=== PATIENT | male | born 1950 | race Caucasian/White ===

== ENCOUNTER 2020-12-04 20:59 | Inpatient (IN) | payer BC, OTHER ==
--- OUTSIDE RECORDS SUMMARY | 2020-12-04 21:02 | XMS REPORT | Continuity of Care Document ---
:1950 Author Organization [facility] t Address [address] [place] [address] Care Team Providers Name Role Phone Jordin Alvarenga Attending Clinician Problems Condition Condition Condition Status Onset Resolution Last Treating Co mments Source Name Details Category Date Date Treatment Clinician Date Hypothyroi Hypothyroi Problem Active [facility] ill[facility] dism dism 11-18 Family 00:00: Practic 00 e Type 2 Type 2 Problem Active [facility] diabetes Diabetes 11-18 Family mellitus Mellitus 00:00: Practi c without without 00 e complicati Complicati on on Hyperlipid Hyperlipid Problem Active [facility] ill[facility] emia emia 11-18 Family 00:00: Practic 00 e Seasonal Seasonal Problem Active [facility] allergic Allergic 11-18 Family rhinitis Rhinitis 00:00: Practi c 00 e Benign Benign Problem Active [facility] prostatic Prostatic 11-18 Fami ly hyperplasi Hyperplasi 00:00: Pr actic a a 00 e 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 21:23:41 l (disorder) 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) Active Problem 11/13/2019 [facility] Cough Problem Active 2019-11-13 Memor ia (finding) 21:23:41 l Cough [place] (finding) Active Problem 11/13/2019 [facility] Diabetes Problem Active 2019-11-13 Mem oria mellitus 21:23:41 l (disorder) Diabetes He rmann mellitus (disorder) Active Problem 11/13/2019 [facility] Hypertensi Problem Active 2019-11-13 M emoria ve 21:23:41 l disorder, [place] systemic Hypertensi arterial ve (disorder) disorder, systemic arterial (disorder) Active Problem 11/13/2019 [facility] Memory Problem Active 2019-11-13 Memor ia impairment 21:23:41 l (finding) Memory Tsering nn impairment (finding) Active Problem 11/13/2019 [facility] 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 Mild [place] (disorder) cognitive disorder (disorder) Active Problem 11/13/2019 [facility] Simple Problem Active 2019-11-13 Memor ia obesity 21:23:41 l (disorder) Simple Herm aleksander obesity (disorder) Active Problem 11/13/2019 [facility] Allergies, Adverse Reactions, Alerts Allergy Allergy Status Severity Reaction(s) Onset Inactive Treating Comm ents Source Name Type Date Date Clinician PENICILL Allergy Active Anaphylaxis Vi llage INS to Family substanc Practic e e penicill penicill Active Memori a in in dee [place] Social History Social Habit Start Date Stop Date Quantity Comments Source Social History 2019-05-13 2019-05-13 [facility] Sami deleonaleksander 16:46:56 16:46:56 Smoking Status Start Date Stop Date Source Never Smoker [facility] Medications Ordered Filled Start Stop Current Ordering Indication Dosage Frequency Signature Comments Components Source Medication Medication Date Date Medication? Clinician (SIG) Name Name donepezil Yes 10 mg = 1 Mem oria 10 mg oral 1-09 tab, PO, l tablet 16:43: Bedtime, # Tsering nn 00 30 tab, 6 Refill(s), Pharmacy: [id number] Donepezil 2018-05 Yes 5 mg = 1 Abbe jessica hydrochlori 0-18 tab, PO, l de 5 MG 14:11: Bedtime, # Herm aleksander Oral Tablet 00 30 tab, 3 [Aricept] Refill(s), Pharmacy: [id number] Donepezil 2018-05 No 5 mg = 1 Abbe jessica hydrochlori 0-18 tab, PO, l de 5 MG 14:10: Bedtime, # Herm aleksander Oral Tablet 00 30 tab, 0 [Aricept] Refill(s) dapaglifloz Yes 10 mg = 1 M emoria in 12-24 tab, PO, l propanediol 16:15: Daily, 0 He rmann 10 MG Oral 00 Refill(s) Tablet [Farxiga] Metformin Yes 1,000 mg = Me moria hydrochlori 8-22 1 tab, PO, l de 1000 MG 16:15: BID-Meals, H ermann Oral Tablet 00 # 30 tab, 0 Refill(s) atorvastati Yes 10 mg = 1 M emoria n 10 mg 8-22 tab, PO, l oral tablet 16:15: Bedtime, # [place] 00 30 tab, 0 Refill(s) levothyroxi Yes 75 Memori a ne 75 mcg 8-22 microgram l (0.075 mg) 16:15: = 1 tab, Her nagy oral tablet 00 PO, Daily, 0 Refill(s) finasteride Yes 5 mg = 1 Me moria 5 mg oral 8-22 tab, PO, l tablet 16:15: Daily, 0 [place] 00 Refill(s) tamsulosin Yes 0.4 mg = 1 M emoria 0.4 mg oral 8-22 cap, PO, l capsule 16:15: Daily, 0 Monico n 00 Refill(s) Insulin Yes 35 units, Memor ia Glargine 8-22 SUB-Q, l 100 UNT/ML 16:15: Daily, 0 Her nagy Injectable 00 Refill(s) Solution [Lantus] atorvastati atorvastati No 1 Q1D atorvastat [place] n 10 mg n 10 mg in 10 mg Famil y tablet Take tablet Take tablet Practic 1 tablet 1 tablet Take 1 e every day every day tablet by oral by oral every day route. route. by oral route. Calcium 600 Calcium 600 No Calcium [place] 600 Family Practic e Cinnamon Cinnamon No Cinnamon Cholo dionne 500 mg 500 mg 500 mg Family capsule capsule capsule Practi c Take by Take by Take by e oral route. oral route. oral route. finasteride finasteride No 1 Q1D finasterid [facility] 5 mg tablet 5 mg tablet e 5 mg Family Take 1 Take 1 tablet Practic tablet tablet Take 1 e every day every day tablet by oral by oral every day route at route at by oral dinner. dinner. route at dinner. Fish Oil Fish Oil No Fish Oil Cholo dionne Family Practic e garlic garlic No 1capsul BID garlic Vill[place] e 1,000 mg 1,000 mg e(s) 1,000 mg Fam yosef capsule capsule capsule Practi c Take 1 Take 1 Take 1 e capsule capsule capsule twice a day twice a day twice a by oral by oral day by route as route as oral route directed. directed. as directed. Ginkoba 40 Ginkoba 40 No Ginkoba 40 Village mg tablet mg tablet mg tablet Family Take by Take by Take by Practi c oral route. oral route. oral e route. glipizide glipizide No 1 BID glipizide [facility] ER 10 mg ER 10 mg ER 10 mg Fam yosef tablet, tablet, tablet, Practi c extended extended extended e release 24 release 24 release 24 hr Take 1 hr Take 1 hr Take 1 tablet tablet tablet twice a day twice a day twice a by oral by oral day by route for route for oral route 90 days. 90 days. for 90 days. Lantus Lantus No Lantus [facility] Solostms Solostar Solostar Fam yosef U-100 U-100 U-100 Practic Insulin 100 Insulin 100 Insulin e unit/mL (3 unit/mL (3 100 mL) mL) unit/mL (3 subcutaneou subcutaneou mL) s pen Give s pen Give subcutaneo 10 units 10 units us pen once daily once daily Give 10 and and units once increase as increase as daily and directed; directed; increase TDD 50 TDD 50 as directed; TDD 50 levothyroxi levothyroxi No 1 Q1D levothyrox [facility] ne 75 mcg ne 75 mcg ine 75 mcg Family tablet Take tablet Take tablet Practic 1 tablet 1 tablet Take 1 e every day every day tablet by oral by oral every day route. route. by oral route. metformin metformin No 1 BID metformin [facility] ER 1,000 mg ER 1,000 mg ER 1,000 Family 24 hr 24 hr mg 24 hr Practic tablet,exte tablet,exte tablet,ext e nded nded ended release release release Take 1 Take 1 Take 1 tablet tablet tablet twice a day twice a day twice a by oral by oral day by route as route as oral route directed. directed. as directed. metformin metformin No 2 BID metformin [facility] ER 500 mg ER 500 mg ER 500 mg Family 24 hr 24 hr 24 hr Practic tablet,exte tablet,exte tablet,ext e nded nded ended release release release Take 2 Take 2 Take 2 tablets tablets tablets twice a day twice a day twice a by oral by oral day by route for route for oral route 90 days. 90 days. for 90 days. multivit multivit No 1capsul Q1D multivit [place] with min with min e(s) with min Fam yosef #53-FA 200 #53-FA 200 #53-FA 200 Practic mcg-vit K mcg-vit K mcg-vit K e 1,000 1,000 1,000 mcg-coQ10 mcg-coQ10 mcg-coQ10 10 mg 10 mg 10 mg capsule capsule capsule Take 1 Take 1 Take 1 capsule capsule capsule every day every day every day by oral by oral by oral route as route as route as directed. directed. directed. multivitami multivitami No multivitam [place] n n in Family Practic e One Touch One Touch No One Touch [facility] Lancets Lancets Lancets Family Practic e OneTouch OneTouch No 3strip( Q1D OneTouch [facility] Verio test Verio test s) Verio test Family strips Take strips Take strips Practic 3 strips 3 strips Take 3 e every day every day strips by miscell. by miscell. every day route as route as by directed directed miscell. for 90 for 90 route as days. days. directed for 90 days. potassium potassium No potassium [facility] 99 mg 99 mg 99 mg Family tablet Take tablet Take tablet Practic by oral by oral Take by e route. route. oral route. Probiotic Probiotic No Probiotic [facility] Family Practic e saw saw No saw [facility] Fam yosef Practic e tamsulosin tamsulosin No 1capsul Q1D tamsulosin [facility] 0.4 mg 0.4 mg e(s) 0.4 mg Family capsule capsule capsule Practi c Take 1 Take 1 Take 1 e capsule capsule capsule every day every day every day by oral by oral by oral route as route as route as directed directed directed for 10 for 10 for 10 days. days. days. vitamin B vitamin B No vitamin B [facility] complex complex complex Family Practic e Vitamin C Vitamin C No Vitamin C [facility] 1,000 mg 1,000 mg 1,000 mg Fam yosef tablet Take tablet Take tablet Practic by oral by oral Take by e route. route. oral route. Vitamin D3 Vitamin D3 No Vitamin D3 [facility] Family Practic e vitamin E vitamin E No vitamin E [facility] 400 unit 400 unit 400 unit Fam yosef capsule capsule capsule Practi c Take by Take by Take by e oral route. oral route. oral route. zinc 50 mg zinc 50 mg No zinc 50 mg Village tablet Take tablet Take tablet Family by oral by oral Take by Practi c route. route. oral e route. Vital Signs Vital Name Observation Time Observation Value Comments Source BP Diastolic 2020-02-16 00:00:00 68 mm[Hg] [facility] Height 2020-02-16 00:00:00 66 [in_i] [facility] BMI (Body Mass 2020-02-16 00:00:00 28.1 kg/m2 [facility] Family Index) Practice BP Systolic 2020-02-16 00:00:00 128 mm[Hg] [facility] Body Weight 2020-02-16 00:00:00 173.8 [lb_av] [facility] Diastolic (mm Hg) 2019-05-13 16:30:00 Mem orial [place] Heart Rate 2019-05-13 16:30:00 [facility] [place] Respitory Rate 2019-05-13 16:30:00 Memori al [place] Height 2019-05-13 16:30:00 165.1 cm [facility] [place] Weight 2019-05-13 16:30:00 [facility] [place] BMI Calculated 2019-05-13 16:30:00 Memori al [place] Systolic (mm Hg) 2019-05-13 16:30:00 Abbe rial [place] Systolic (mm Hg) 2019-02-19 13:48:00 Abbe rial [place] Diastolic (mm Hg) 2019-02-19 13:48:00 Mem orial [place] Heart Rate 2019-02-19 13:48:00 [facility] [place] Respitory Rate 2019-02-19 13:48:00 Memori al [place] Height 2019-02-19 13:48:00 167.64 cm [facility] [place] Weight 2019-02-19 13:48:00 [facility] [place] BMI Calculated 2019-02-19 13:48:00 Memori al [place] Systolic (mm Hg) 2018-12-24 15:50:00 Abbe rial [place] Diastolic (mm Hg) 2018-12-24 15:50:00 Mem orial [place] Heart Rate 2018-12-24 15:50:00 [facility] [place] Respitory Rate 2018-12-24 15:50:00 Memori al [place] Height 2018-12-24 15:50:00 165.1 cm [facility] [place] Weight 2018-12-24 15:50:00 [facility] [place] BMI Calculated 2018-12-24 15:50:00 Memori al [place] Procedures Procedure Date / Time Performed Performing Clinician Sharri dueñas Colonoscopy [facility] Leg Surgery Procedure [facility] Plan of Care Planned Activity Planned Date Details Comments Source Diagnostic Test 2020-02-16 glucose, fingerstick, [facility]00 blood [code = Practice glucose, fingerstick, blood] Diagnostic Test 2020-02-16 hemoglobin A1C, [facility] Yue de souza Pending 00:00:00 fingerstick [code = Practice hemoglobin A1C, fingerstick] Diagnostic Test 2020-02-16 microalbumin/creatini [facility] Pending 00:00:00 ne, mass ratio, urine Practi ce [code = microalbumin/creatini ne, mass ratio, urine] Diagnostic Test 2020-02-16 lipid panel, serum [facility] Pending 00:00:00 [code = lipid panel, Practic e serum] Diagnostic Test 2020-02-16 CMP, serum or plasma [facility] Pending 00:00:00 [code = CMP, serum or Practi ce plasma] Diagnostic Test 2020-02-16 CBC w/ auto diff [facility] Pending 00:00:00 [code = CBC w/ auto Practice diff] Diagnostic Test 2020-02-16 TSH, serum or plasma [facility] Pending 00:00:00 [code = TSH, serum or Practi ce plasma] Diagnostic Test 2020-02-16 T4, free, serum [code [facility] Pending 00:00:00 = T4, free, serum] Practice Diagnostic Test 2020-02-16 diabetes panel, serum [facility] Pending 00:00:00 [code = diabetes Practice panel, serum] Diagnostic Test 2020-02-16 C-peptide, serum [facility] Pending 00:00:00 [code = C-peptide, Practice serum] Diagnostic Test 2020-02-16 diabetes panel, serum [facility] Pending 00:00:00 [code = diabetes Practice panel, serum] Encounters Start End Encounter Admission Attending Care Care Encounter Source Date/Time Date/Time Type Type Clinicians Facility Department ID 2020-02-16 2020-02-16 Blake QUINTANILLA [place] - [id number] Fidel gray 00:00:00 00:00:00 Selvin [facility] Nevin Bowers - Nic smith MD: [id number] [email or web address] dueñas [facility] [address] [address] , Ph. 2019-11-11 2019-11-11 Outpatient Braxtonralph MISCHER MHMISCHER [id number] 10:00:00 10:00:00 Rui 04 Jordin 2019-11-11 2019-11-11 Outpatient Lyle MHMISCHER MHMISCHER [id number] 10:00:00 10:00:00 Rui 05 Jordin 2019-05-13 2019-05-13 Outpatient Lyle MISCHER MHMISCHER [id number] 10:00:00 23:59:59 Rui 03 Jordin 2019-03-30 2019-03-30 Outpatient Lyle MHMISCHER MHMISCHER [id number] 11:30:00 11:30:00 Rui 02 Jordin 2019-02-19 2019-02-19 Outpatient Lyle MISCHER MHMISCHER [id number] 09:00:00 23:59:59 Rui Jordin 2018-12-24 2018-12-24 Outpatient Lyle MISCHER MHMISCHER [id number] 10:30:00 23:59:59 Rui 00 Jordin Results This patient has no known results.
[2020-12-04 21:23] LABS: Absolute Lymphocytes (CBC) 0.4 K/uL (0.7-4.9); Basophils % 0.4 % (0-1.3); Hematocrit 40.8 % (39.6-49.0); MPV 8.5 fL (7.6-11.3)
[2020-12-04] MEDS ORDERED: METHYLPREDNISOLONE 125 MG INJ ONE (21:36)
[2020-12-04 21:48] LABS: Albumin 2.9 g/dL (3.4-5.0); Bilirubin Direct 0.2 mg/dL (0-0.2); Bilirubin Total 0.5 mg/dL (0.2-1.0); CKMB Creatine Kinase MB 7.8 ng/mL (1.0-3.6); Magnesium 1.8 mg/dL (1.8-2.4); Potassium 4.2 mmol/L (3.5-5.1); Protein, Total 7.3 g/dL (6.4-8.2); Troponin (Emerg Dept Use Only) 0.03 ng/mL (0.0-0.045)
--- NOTE | 2020-12-04 21:57 | ER ---
Nurse's Notes [facility] Name: Evangelist Montalvo Jr Age: 70 yrs Sex: Male : 1950 Arrival Date: 12/04/2020 Time: 21:04 Bed 3 Private MD: Diagnosis: Other viral pneumonia-covid 19;Hypoxemia Presentation: 12/04 21:16 Ebola Screen: No symptoms or risks identified at this time. Initial Sepsis Screen: Does ea the patient meet any 2 criteria? No. Patient's initial sepsis screen is negative. Does the patient have a suspected source of infection? No. Patient's initial sepsis screen is negative. Risk Assessment: Do you want to hurt yourself or someone else? Patient reports no desire to harm self or others. Onset of symptoms was December 04, 2020. 21:16 Acuity: FIOR 3 ea 21:23 Chief complaint: EMS states: Reports pt was diagnosed with covid yesterday reported ea started getting short of breath today sats were in the 80s pt was placed on non rebreather and was given neb treatment. Sats went up to 90. Coronavirus screen: At this time, the client does not indicate any symptoms associated with coronavirus-19. 21:23 Method Of Arrival: EMS: [facility] ea Historical: - Immunization history:: Adult Immunizations unknown. - Social history:: Smoking status: unknown. - Family history:: not pertinent. Screenin:16 Abuse screen: Denies threats or abuse. Nutritional screening: No deficits noted. ea Tuberculosis screening: No symptoms or risk factors identified. Fall Risk IV access (20 points). Assessment: 21:04 General: Appears uncomfortable, Behavior is calm, cooperative, appropriate for age. ea Pain: Denies pain. Neuro: Level of Consciousness is awake, alert, obeys commands, Oriented to person, place, time. Cardiovascular: Patient's skin is warm and dry. Respiratory: Airway is patent Respiratory effort is labored, Respiratory pattern is tachypnea. Derm: Skin is pink, warm \T\ dry. 21:04 Reassessment: Respiratory at bedside placed on BiPAP. ea 12/05 19:56 Reassessment: Patient and/or family updated on plan of care and expected duration. Pain ea level reassessed. Patient is alert, oriented x 3, equal unlabored respirations, skin warm/dry/pink. Pt admitted to fourth floor, report called to receiving nurse. Pt left ED via wheelchair per tech, with O2, pt tolerating well. Vital Signs: 12/04 21:19 BP 122 / 71; Pulse 103; Resp 28; Pulse Ox 98% ; ea 21:39 BP 134 / 51; Pulse 76; Resp 22; Temp 98.6; Pulse Ox 98% ; ea 22:45 BP 124 / 62; Pulse 93; Resp 26; Pulse Ox 96% on BiPAP; ea 23:30 BP 116 / 60; Pulse 90; Resp 22; Pulse Ox 98% ; ea 12/05 00:30 BP 123 / 64; Pulse 88; Resp 21; Pulse Ox 98% on BiPAP; ea 19:57 BP 92 / 72; Pulse 99; Resp 22; Pulse Ox 90% on Non-rebreather mask; ea ED Course: 12/04 21:04 Patient arrived in ED. ea 21:06 Inserted saline lock: 20 gauge in right wrist, using aseptic technique. Blood collected.ea 21:11 Lupis Cabrera, MESFIN is Primary Nurse. ea 21:16 Triage completed. ea 21:17 Patient has correct armband on for positive identification. Placed in gown. ea 21:17 Arm band placed on right wrist. Patient placed in an exam room, on a stretcher, on ea pulse oximetry. 21:25 Yordy Dumont MD is Attending Physician. rosy 21:55 Jayson Oakes DO is Hospitalizing Provider. [facility] 21:57 Chest Single View XRAY In Process Unspecified. EDMS 12/05 00:44 No provider procedures requiring assistance completed. Patient admitted, IV remains in ea place. Administered Medications: 12/04 21:15 Drug: SOLU-Medrol (methylPrednisoLONE) 125 mg Route: IVP; Site: right wrist; ea 22:00 Follow up: Response: No adverse reaction ea 22:09 Drug: Pepcid (famotidine) 20 mg Route: IVP; Site: right wrist; ea 12/05 00:43 Follow up: Response: No adverse reaction ea 12/04 22:09 Drug: Zithromax (azithromycin) 500 mg Route: IVPB; Infused Over: 1 hrs; Site: right ea wrist; 12/05 00:43 Follow up: Response: No adverse reaction; IV Status: Completed infusion; IV Intake: ea 250ml 12/04 22:09 Drug: Rocephin (cefTRIAXone) 1 grams Route: IV; Rate: per protocol; Site: right wrist; ea 23:00 Follow up: IV Status: Completed infusion kell 12/05 00:42 Drug: Aspirin 162 mg Route: PO; ea 00:43 Follow up: Response: No adverse reaction ea Intake: 00:43 IV: 250ml; Total: 250ml. ea Outcome: 12/04 21:56 Decision to Hospitalize by Provider. rosy 12/05 00:44 Admitted to ER Hold. Please see [facility] for further documentation. ea Condition: stable Instructed on the need for admit, Demonstrated understanding of instructions. 19:59 Patient left the ED. ea Signatures: Dispatcher [employer] EDYordy Son MD MD cha Antunez, Elena RN RN kell Corrections: (The following items were deleted from the chart) 12/04 21:17 21:17 Allergies: No Known Allergies; ea ea 21:23 21:19 BP 122 / 71; Pulse 103bpm; Resp 18bpm; Pulse Ox 98%; ea ea 21:40 21:39 BP 134 / 51; Pulse 76bpm; Resp 16bpm; Pulse Ox 98%; Temp 98.6F; ea ea
--- NOTE | 2020-12-04 21:57 | EDPHYS ---
Physician Documentation [facility] Name: Evangelist Montalvo Jr Age: 70 yrs Sex: Male : 1950 Arrival Date: 12/04/2020 Time: 21:04 Bed 3 Private MD: ED Physician Yordy Dumont HPI: 12/04 21:47 This 70 yrs old Male presents to ER via EMS with complaints of sob and covid rosy positive. 21:47 The patient has shortness of breath at rest, with light activity. Onset: The rosy symptoms/episode began/occurred 3 day(s) ago. Duration: The symptoms are continuous, and are steadily getting worse. The patient's shortness of breath is aggravated by coughing, light activity, prone position, supine position, talking, walking. The patient or guardian reports cough, described as mild, difficulty breathing, flu symptoms, arthralgias, low-grade fever, myalgias. Modifying factors: The symptoms are alleviated by changing position, elevating head, remaining still, the symptoms are aggravated by activity, lying flat, talking. Associated signs and symptoms: Pertinent positives: non-productive cough. Severity of symptoms: At their worst the symptoms were moderate in the emergency department the symptoms are unchanged. Associated signs and symptoms: The patient has no apparent associated signs or symptoms. Historical: - Immunization history:: Adult Immunizations unknown. - Social history:: Smoking status: unknown. - Family history:: not pertinent. ROS: 21:47 Constitutional: Negative for fever, chills, and weight loss, Eyes: Negative for injury, rosy pain, redness, and discharge, ENT: Negative for injury, pain, and discharge, Neck: Negative for injury, pain, and swelling, Cardiovascular: Negative for chest pain, palpitations, and edema, Abdomen/GI: Negative for abdominal pain, nausea, vomiting, diarrhea, and constipation, Back: Negative for injury and pain, : Negative for injury, bleeding, discharge, and swelling, MS/Extremity: Negative for injury and deformity, Skin: Negative for injury, rash, and discoloration, Neuro: Negative for headache, weakness, numbness, tingling, and seizure, Psych: Negative for depression, anxiety, suicide ideation, homicidal ideation, and hallucinations, Allergy/Immunology: Negative for hives, rash, and allergies, Endocrine: Negative for neck swelling, polydipsia, polyuria, polyphagia, and marked weight changes, Hematologic/Lymphatic: Negative for swollen nodes, abnormal bleeding, and unusual bruising. 21:47 Respiratory: Positive for cough, "sounds productive". Exam: 21:47 Constitutional: This is a well developed, well nourished patient who is awake, alert, rosy and in no acute distress. Head/Face: Normocephalic, atraumatic. Eyes: Pupils equal round and reactive to light, extra-ocular motions intact. Lids and lashes normal. Conjunctiva and sclera are non-icteric and not injected. Cornea within normal limits. Periorbital areas with no swelling, redness, or edema. ENT: Nares patent. No nasal discharge, no septal abnormalities noted. Tympanic membranes are normal and external auditory canals are clear. Oropharynx with no redness, swelling, or masses, exudates, or evidence of obstruction, uvula midline. Mucous membranes moist. Neck: Trachea midline, no thyromegaly or masses palpated, and no cervical lymphadenopathy. Supple, full range of motion without nuchal rigidity, or vertebral point tenderness. No Meningismus. Chest/axilla: Normal chest wall appearance and motion. Nontender with no deformity. No lesions are appreciated. Cardiovascular: Regular rate and rhythm with a normal S1 and S2. No gallops, murmurs, or rubs. Normal PMI, no JVD. No pulse deficits. Abdomen/GI: Soft, non-tender, with normal bowel sounds. No distension or tympany. No guarding or rebound. No evidence of tenderness throughout. Back: No spinal tenderness. No costovertebral tenderness. Full range of motion. Male : Normal genitalia with no discharge or lesions. Skin: Warm, dry with normal turgor. Normal color with no rashes, no lesions, and no evidence of cellulitis. MS/ Extremity: Pulses equal, no cyanosis. Neurovascular intact. Full, normal range of motion. Neuro: Awake and alert, GCS 15, oriented to person, place, time, and situation. Cranial nerves II-XII grossly intact. Motor strength 5/5 in all extremities. Sensory grossly intact. Cerebellar exam normal. Normal gait. Psych: Awake, alert, with orientation to person, place and time. Behavior, mood, and affect are within normal limits. 21:47 Respiratory: mild respiratory distress is noted, Respirations: labored breathing, that is mild, Breath sounds: bronchial sounds, that are mild, decreased breath sounds, that are mild, rhonchi, that are mild, stridor, is not appreciated, + upper airway congestion. Respiratory rate: 22 22:14 ECG was reviewed by the Attending Physician. [facility] Vital Signs: 21:19 BP 122 / 71; Pulse 103; Resp 28; Pulse Ox 98% ; ea 21:39 BP 134 / 51; Pulse 76; Resp 22; Temp 98.6; Pulse Ox 98% ; ea 22:45 BP 124 / 62; Pulse 93; Resp 26; Pulse Ox 96% on BiPAP; ea 23:30 BP 116 / 60; Pulse 90; Resp 22; Pulse Ox 98% ; ea 12/05 00:30 BP 123 / 64; Pulse 88; Resp 21; Pulse Ox 98% on BiPAP; ea 19:57 BP 92 / 72; Pulse 99; Resp 22; Pulse Ox 90% on Non-rebreather mask; ea MDM: 12/04 21:25 Patient medically screened. rosy 21:51 Differential diagnosis: Anemia asthma, Bronchitis CHF exacerbation, Chronic Obstructive rosy Pulmonary Disease bronchitis, flu, URI, Myocardial Infarction pneumonia, Pneumothorax pulmonary edema. Antibiotic administration: Rocephin and Zithromax given. The patient's Wells Deep Vein Thrombosis Score was calculated as follows: Total Score: 0-2 Pts- Low Risk. The patient's pulmonary embolism risk score was calculated as follows: Total Score: 0-2 points. This patient was found to be at low risk for a pulmonary embolism by using the Well's assessment criteria. Immunization status: Pneumococcal vaccine: Influenza vaccine: Data reviewed: vital signs, nurses notes, EMS record, lab test result(s), EKG, radiologic studies, plain films. Data interpreted: health plan manager: rate is 76 beats/min, rhythm is regular, Pulse oximetry: on room air is 85 %. Test interpretation: by ED physician or midlevel provider: ECG, plain radiologic studies. Counseling: I had a detailed discussion with the patient and/or guardian regarding: the historical points, exam findings, and any diagnostic results supporting the discharge/admit diagnosis, lab results, the need for outpatient follow up, for definitive care, the need for further work-up and treatment in the hospital. 12/04 21:11 Order name: BMP; Complete Time: 21:56 ea 12/04 21:11 Order name: Blood Culture Adult (2) ea 12/04 21:11 Order name: CBC with Diff; Complete Time: 00:03 ea 12/04 21:11 Order name: CPK; Complete Time: 21:56 ea 12/04 21:11 Order name: Ckmb; Complete Time: 21:56 ea 12/04 21:11 Order name: D-Dimer; Complete Time: 00:03 ea 12/04 21:11 Order name: Hepatic Function; Complete Time: 21:56 ea 12/04 21:11 Order name: Lipase; Complete Time: 21:56 ea 12/04 21:11 Order name: Magnesium; Complete Time: 21:56 ea 12/04 21:11 Order name: NT PRO-BNP; Complete Time: 21:56 ea 12/04 21:11 Order name: PT-INR; Complete Time: 00:03 ea 12/04 21:11 Order name: Ptt, Activated; Complete Time: 00:03 ea 12/04 21:11 Order name: Troponin (emerg Dept Use Only); Complete Time: 21:56 ea 12/04 21:12 Order name: CRP; Complete Time: 21:56 la1 08 21:38 Order name: Manual Differential; Complete Time: 00:03 EDMS 12/05 06:00 Order name: CBC with Automated Diff; Complete Time: 06:21 EDMS 12/05 06:10 Order name: D-Dimer; Complete Time: 06:21 EDMS 12/05 06:25 Order name: Comprehensive Metabolic Panel EDMS 12/05 06:25 Order name: Troponin I EDMS 12/05 06:25 Order name: Lipid Profile EDMS 12/05 06:25 Order name: C-Reactive Protein EDMS 12/05 06:25 Order name: T4 Free EDMS 12/05 06:25 Order name: Magnesium EDMS 12/05 06:25 Order name: Thyroid Stimulating Hormone EDMS 12/05 06:25 Order name: Ferritin EDMS 12/05 07:05 Order name: Hemoglobin A1c EDMS 12/05 07:11 Order name: Urinalysis EDMS 12/05 07:21 Order name: Urine Microscopic Only EDMS 12/05 09:18 Order name: Glucose, Ancillary Testing EDMS 12/05 13:03 Order name: Glucose, Ancillary Testing EDMS 12/04 21:11 Order name: EKG; Complete Time: 21:12 12/04 21:11 Order name: Cardiac monitoring; Complete Time: 21:16 12/04 21:11 Order name: EKG - Nurse/Tech; Complete Time: 21:16 ea 12/04 21:11 Order name: IV Saline Lock; Complete Time: 21:16 12/04 21:11 Order name: Labs collected and sent; Complete Time: 21:16 12/04 21:11 Order name: O2 Per Protocol; Complete Time: 21:16 12/04 21:11 Order name: O2 Sat Monitoring; Complete Time: 21:16 12/04 21:45 Order name: Chest Single View XRAY; Complete Time: 22:08 [facility] 12/05 00:04 Order name: CT Chest For PE Angio [facility] 12/05 11:40 Order name: CT EDMS 12/05 17:09 Order name: Glucose, Ancillary Testing EDMS EC:14 Rate is 108 beats/min. Rhythm is regular. QRS [place] is Normal. NE interval is normal. [facility] QRS interval is normal. QT interval is normal. No Q waves. T waves are Normal. No ST changes noted. Clinical impression: LVH, Sinus tachycardia, and No evidence of ischemia. Interpreted by me. Reviewed by me. Administered Medications: 21:15 Drug: SOLU-Medrol (methylPrednisoLONE) 125 mg Route: IVP; Site: right wrist; ea 22:00 Follow up: Response: No adverse reaction ea 22:09 Drug: Pepcid (famotidine) 20 mg Route: IVP; Site: right wrist; ea 12/05 00:43 Follow up: Response: No adverse reaction 12/04 22:09 Drug: Zithromax (azithromycin) 500 mg Route: IVPB; Infused Over: 1 hrs; Site: right ea wrist; 12/05 00:43 Follow up: Response: No adverse reaction; IV Status: Completed infusion; IV Intake: ea 250ml 12/04 22:09 Drug: Rocephin (cefTRIAXone) 1 grams Route: IV; Rate: per protocol; Site: right wrist; ea 23:00 Follow up: IV Status: Completed infusion ea 12/05 00:42 Drug: Aspirin 162 mg Route: PO; ea 00:43 Follow up: Response: No adverse reaction ea Disposition Summary: 08/02/21 21:56 Hospitalization Ordered Hospitalization Status: Inpatient Admission rosy Provider: Jayson Oakes cha Condition: Stable rosy Problem: new rosy Symptoms: have improved rosy Bed/Room Type: Standard rosy Location: Telemetry/MedSurg (Inpatient)(12/05/20 18:25) bd Room Assignment: 416(12/05/20 18:25) bd Diagnosis - Other viral pneumonia - covid 19 rosy - Hypoxemia rosy Forms: - Medication Reconciliation Form rosy - SBAR form rosy Signatures: Dispatcher [employer] EDLynda Wallace Martha RN RN Yordy Morales MD MD cha Roszak, Josh, PA PA [id number] Diogenes Franks, GABRIELA-C DYE WINCH OPERATOR-Ruy1 Lupis Cabrera RN RN ea Corrections: (The following items were deleted from the chart) 12/04 21:17 21:17 Allergies: No Known Allergies; ea ea 21:57 21:56 Telemetry/MedSurg (Inpatient) [facility] 21:57 21:56 [facility] 12/05 18:25 12/04 21:[address] [facility] ER HOLD mw bd 12/05 18:25 12/04 21:57 ERHOLD- mw
--- NOTE | 2020-12-04 22:03 | RAD REPORT ---
EXAM DESCRIPTION: RAD - Chest Single View - 12/04/2020 9:57 pm CLINICAL HISTORY: COUGH Chest pain. COMPARISON: Chest Pa And Lat (2 Views) dated 12/28/2015 FINDINGS: Portable technique limits examination quality. Moderate bilateral pulmonary opacities are present. This likely represents viral infection/bronchitis . The heart is normal in size. No displaced fractures.
[2020-12-04 22:09] LABS: Protime INR 1.09
[2020-12-04] MEDS ORDERED: ASPIRIN EC 81 MG TAB PO ONE (22:21)
[2020-12-04] MEDS ORDERED: FAMOTIDINE 20 MG/2 ML VIAL IV ONE (22:21)
[2020-12-04] MEDS ORDERED: NA CHLORIDE 0.9% 250 ML ONE (22:21)
[2020-12-04] MEDS ORDERED: CEFTRIAXONE/SWI 1gm 1 GM/10 ML SYR ONE (22:21)
[2020-12-04] MEDS ORDERED: AZITHROMYCIN 500 MG INJ IVPB ONE (22:21)
--- NOTE | 2020-12-04 22:21 | P.HP ---
Certification for Inpatient Patient admitted to: Inpatient With expected LOS: >2 Midnights Patient will require the following post-hospital care: None Practitioner: I am a practitioner with admitting privileges, knowledge of patient current condition, hospital course, and medical plan of care. Services: Services provided to patient in accordance with Admission requirements found in Title 42 Section 412.3 of the Code of Federal Regulations Patient History Date of Service: 12/04/20 Primary Care Provider: Out of town Reason for admission: COVID-19 pneumonia History of Present Illness: 70-year-old male with history of cerebral palsy, diabetes mellitus type 2 presents emergency department for shortness of breath. Patient reports increasing shortness of breath over the course of the last few days reports testing positive for Covid yesterday. Patient was found to be saturating in the 80s on room air was placed on BiPAP on arrival to the emergency department, labs were significant for GFR 71 glucose 134 CPK 698 CK-MB 7.8 troponin 0.03 CRP 120 BNP 464. ED provider wishes to admit for further evaluation and management of COVID-19 pneumonia with hypoxia - Past Medical/Surgical History -: Diabetes mellitus type 2 -: Cerebral palsy -: Left Achilles surgery -: Right arm surgery Psychosocial/ Personal History: Lives at home with - Family History Family History: Reviewed- Non-Contributory - Social History Smoking Status: Never smoker Alcohol use: No CD- Drugs: No Caffeine use: Yes Place of Residence: Home Review of Systems 10-point ROS is otherwise unremarkable Respiratory: Cough, Dry, Shortness of Breath, SOB with Excertion Physical Examination - Physical Exam General: Alert, In no apparent distress, Oriented x3 HEENT: Atraumatic, PERRLA, Mucous membr. moist/pink, EOMI Neck: Supple, 2+ carotid pulse no bruit, No LAD Respiratory: Normal air movement, Diminished Cardiovascular: Regular rate/rhythm, Normal S1 S2 Gastrointestinal: Normal bowel sounds, No tenderness Musculoskeletal: No tenderness Integumentary: No rashes Neurological: Normal speech, Normal strength at 5/5 x4 extr, Normal tone, Normal affect - Studies Laboratory Data (last 24 hrs) 12/04/20 21:04: WBC 9.70, Hgb 13.7, Hct 40.8, Plt Count 165 12/04/20 21:04: Sodium 136, Potassium 4.2, BUN 27 H, Creatinine 1.03, Glucose 134 H, Magnesium 1.8, Total Bilirubin 0.5, AST 83 H, ALT 41, Alkaline Phosphatase 66, Lipase 130 Assessment and Plan - Plan Assessment: Acute hypoxic respiratory failure secondary to COVID-19 pneumonia Diabetes mellitus type 2 History of cerebral palsy Plan: Acute hypoxic respiratory failure secondary to COVID-19 pneumonia: Continue with supplemental oxygen as needed, IV steroids, oral supplements. Pulmonology consulted for additional assistance anticipate clinical improvement over the course of the next 72+ hours. Appreciate further input from pulmonology. Troponin 0 0.03, will trend. Diabetes mellitus type 2: AC at bedtime Accu-Chek, obtain continue medication. ADA diet. History of cerebral palsy: Stable, patient reports he was healed with experimental treatment. DVT PPX: Lovenox Code status: Full Discharge Plan: Home Plan to discharge in: 48 Hours - Advance Directives Does patient have a Living Will: No Does patient have a Durable POA for Healthcare: No Time Spent Managing Pts Care (In Minutes): 55
[2020-12-04 22:49] LABS: Blood Morphology Comment NOT SEEN (NOT SEEN); Platelet Estimate ADEQ
[2020-12-05] MEDS ORDERED: IVERMECTIN 3 MG TABLET PO SCH (01:39)
[2020-12-05 01:41] VITALS: BMI 29.0
[2020-12-05 05:52] LABS: Absolute Lymphocytes (CBC) 0.3 K/uL (0.7-4.9); Basophils % 0.1 % (0-1.3); Hematocrit 37.1 % (39.6-49.0); Lymphocytes % 5.2 % (15.3-44.8); MPV 8.2 fL (7.6-11.3); RBC Red Blood Cell Count 4.41 M/uL (4.33-5.43)
[2020-12-05 06:25] LABS: ALT/SGPT 36 U/L (12-78); AST/SGOT 70 U/L (15-37); Albumin 2.6 g/dL (3.4-5.0); Alkaline Phosphatase 61 U/L (45-117); BUN Blood Urea Nitrogen 24 mg/dL (7-18); Bicarbonate 24 mmol/L (21-32); Bilirubin Total 0.3 mg/dL (0.2-1.0); Ferritin 426.2 ng/mL (26-388); Glucose Level 216 mg/dL (74-106); HDL Cholesterol 42 mg/dL (40-60); LDL Cholesterol, Calculated 41 (<130); Magnesium 2.1 mg/dL (1.8-2.4); Potassium 4.2 mmol/L (3.5-5.1); Protein, Total 6.5 g/dL (6.4-8.2); Sodium Level 137 mmol/L (136-145); Thyroid Stimulating Hormone 0.661 uIU/mL (0.360-3.740); Troponin I 0.04 ng/mL (0.0-0.045)
[2020-12-05 07:06] LABS: Urine Appearance CLEAR (Clear); Urine Bilirubin NEGATIVE (Negative); Urine Blood 1+ (Negative); Urine Color YELLOW (Yellow); Urine Glucose 1+ (Negative); Urine Protein 2+ (Negative); Urine Specific Gravity >=1.030 (1.005-1.030); Urine Urobilinogen 0.2 mg/dL (0.2-1.0)
[2020-12-05 07:10] LABS: Urine Microscopic Reflex ORDER UMIC
[2020-12-05 07:20] LABS: Urine Bacteria NONE SEEN /HPF (NONE SEEN); Urine RBC <5 /HPF (NONE SEEN)
[2020-12-05] MEDS: ASPIRIN EC 81 MG TAB PO SCH (07:57)
[2020-12-05] MEDS: ASCORBIC ACID 500 MG TABLET PO SCH ×4 (07:58→20:43)
[2020-12-05] MEDS: VITAMIN D 1000 UNIT TAB PO SCH (07:58)
[2020-12-05] MEDS: ZINC SULFATE 220 MG CAP PO SCH (07:58)
[2020-12-05] MEDS: BENZONATATE 100 MG CAP PO PRN ×2 (07:58→20:43)
[2020-12-05] MEDS: THIAMINE HCL 100 MG TABLET PO SCH (07:58)
[2020-12-05] MEDS ORDERED: ZINC SULFATE 220 MG CAP ONE (08:01)
[2020-12-05] MEDS ORDERED: VITAMIN D 1000 UNIT TAB ONE (08:01)
[2020-12-05] MEDS ORDERED: BENZONATATE 100 MG CAP PO ONE (08:01)
[2020-12-05] MEDS ORDERED: ASCORBIC ACID 500 MG TABLET ONE ×2 (08:02→12:55)
[2020-12-05] MEDS ORDERED: ENOXAPARIN 40 MG/0.4 ML SQ ONE (08:39)
[2020-12-05] MEDS: ENOXAPARIN 40 MG/0.4 ML SQ SCH (09:00)
[2020-12-05] MEDS: IVERMECTIN 3 MG TABLET PO SCH (09:00)
[2020-12-05] MEDS: METHYLPREDNISOLONE 40 MG INJ IV SCH ×3 (09:00→20:43)
[2020-12-05] MEDS: INSULIN -REGULAR HUMAN 50 UNIT/0.5 ML ML SQ SCH ×4 (10:35→21:18)
[2020-12-05] MEDS ORDERED: INSULIN -REGULAR HUMAN 50 UNIT/0.5 ML ML ONE ×3 (10:47→19:12)
--- NOTE | 2020-12-05 11:18 | EKG ---
Test Date: 2020-12-04 Test Time: 21:11:20 Biological Inspector: MITCHELL MEASUREMENT RESULTS: Intervals: Rate: 108 AL: 146 QRSD: 76 QT: 308 QTc: 412 [place]: P: 51 AL: 146 QRS: 6 T: 34 INTERPRETIVE STATEMENTS: Sinus tachycardia RSR' or QR pattern in V1 suggests right ventricular conduction delay Moderate voltage criteria for LVH, may be normal variant Inferior infarct, age undetermined Possible Anterior infarct, age undetermined Abnormal ECG No previous ECG available for comparison Electronically Signed On 12-05-20 11:16:21 CDT by Hay Low
--- NOTE | 2020-12-05 11:39 | RAD REPORT ---
EXAM DESCRIPTION: CT - Chest For Pe Angio - 12/05/2020 6:24 am CLINICAL HISTORY: 70 years, Male, Congestion;Cough COMPARISON: None. TECHNIQUE: Multiple transaxial tomograms of the chest were obtained from the lung apices through the lung bases utilizing 2 mm slice thickness at 2 mm interval reconstruction after the administration o f large bolus of IV contrast for complete opacification of the pulmonary arteries. Subsequent maximum intensity projection images were generated in the coronal and sagittal plane for r eview. This exam was performed according to our departmental dose-optimization protocol, which includes auto mated exposure control, adjustment of the mA and/or kV according to patient size and/or use of iterat cam reconstruction technique. FINDINGS: The lungs parenchyma demonstrate the presence of bilateral lower lobe peripheral groundgla ss opacities with interlobular septal thickening-crazy paving. No significant masses and/or consolida tions are identified. The trachea mainstem bronchus demonstrate to be normal. There is no significa nt pericardial or pleural effusions. The thoracic aorta demonstrate intimal aortic arch calcification. There is no evidence for significan t thoracic aortic dissection. There is no evidence for significant aneurysm. The heart is normal in s ize. No evidence for right ventricular strain. There are coronary artery calcifications. There are prominent subclinical hilar lymph nodes most likely reactive in nature. There is no signifi cant mediastinal and/or hilar lymphadenopathy. The axillary regions demonstrate to be clear. Pulmonary arteries demonstrate to be within normal limits. Several of the images are compromised by m otion artifact. No major significant intraluminal defect could be seen centrally/proximal aspect. Sub segmental branches are compromised by motion artifact. The bone windows demonstrate no significant skeletal lesions. The visualized portions of the upper abdomen demonstrate decreased attenuation of the liver suggestin g fatty infiltration. IMPRESSION: Several of the images are compromised by motion artifact. No major significant intralumi nal defect that would suggest pulmonary embolus. Commonly reported imaging features of COVID-19 pneumonia are present. Other processes such as influen za pneumonia and organizing pneumonia, as can be seen with drug toxicity and connective tissue diseas e, can cause a similar imaging pattern. (Reference: https://pubs.rsna.org/doi/full/10.1148/ryct.80964 93765). 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 Electronically signed by: Tomas Soto MD 12/05/2020 1:45 AM CDT Due to temporary technical issues with the PACS/Fluency reporting system, reports are being signed by the in house radiologist without review as a courtesy to ensure prompt reporting. The interpreting r adiologist is fully responsible for the content of the report.
[2020-12-05] MEDS ORDERED: METHYLPREDNISOLONE 40 MG INJ ONE (12:55)
--- NOTE | 2020-12-05 13:17 | P.CNS ---
Date of Consult: 12/05/20 Reason for Consult: [place] [place] Primary Care Provider: Out of town Chief Complaint: COVID-19 pneumonia History of Present Illness: Age 70 multiple med problems AW resp failure from COVID/ on BIPAP Allergies Penicillins Allergy (Unknown, Verified 12/05/20 01:39) Anaphylaxis - Past Medical/Surgical History -: Diabetes mellitus type 2 -: Cerebral palsy -: Left Achilles surgery -: Right arm surgery Psychosocial/ Personal History: Lives at home with - Social History Alcohol use: No CD- Drugs: No Caffeine use: Yes Place of Residence: Home Review of Systems is unable to be obtained Physical Examination Temp Pulse Resp BP Pulse Ox 98.8 F 96 H 18 141/67 H 97 12/05/20 12:00 12/05/20 12:00 12/05/20 12:00 12/05/20 12:00 12/05/20 12:00 General: Alert, Oriented x3 Laboratory Data (last 24 hrs) 12/04/20 21:04: PT 12.5, INR 1.09, APTT 29.5 12/04/20 21:04: WBC 9.70, Hgb 13.7, Hct 40.8, Plt Count 165 12/04/20 21:04: Sodium 136, Potassium 4.2, BUN 27 H, Creatinine 1.03, Glucose 134 H, Magnesium 1.8, Total Bilirubin 0.5, AST 83 H, ALT 41, Alkaline Phosphatase 66, Lipase 130 - Problems (1) Pneumonia due to COVID-19 virus Current Visit: Yes Status: Acute Plan: AGe 70 AW COVID [place]/ labs rev/ Qualifies for Barcitnib
--- NOTE | 2020-12-05 16:30 | P.PN ---
Subjective Date of Service: 12/05/20 Primary Care Provider: Out of town Chief Complaint: COVID-19 pneumonia Subjective: No new changes (on BIPAP, needing high FiO2, feels slightly more comfortable, denies chest pain/edema/nausea/vomiting) Review of Systems 10-point ROS is otherwise unremarkable Physical Examination - Vital Signs Temperature: 98.8 F Blood Pressure: 101/60 Pulse: 91 Respirations: 21 Pulse Ox (%): 92 - Studies Laboratory Data (last 24 hrs) 12/04/20 21:04: PT 12.5, INR 1.09, APTT 29.5 12/04/20 21:04: WBC 9.70, Hgb 13.7, Hct 40.8, Plt Count 165 12/04/20 21:04: Sodium 136, Potassium 4.2, BUN 27 H, Creatinine 1.03, Glucose 134 H, Magnesium 1.8, Total Bilirubin 0.5, AST 83 H, ALT 41, Alkaline Phosphatase 66, Lipase 130 Assessment & Plan Physician Review Additional Text: Physical Exam General: AAOx3, NAD HEENT: normal conjunctiva, sclera anicteric Respiratory: nonlabored respirations on BIPAP Cardiovascular: Regular rate/rhythm, Normal S1 S2 Gastrointestinal: soft, nontender, nondistended Musculoskeletal: No joint tenderness Integumentary: No rashes Problem List Acute hypoxic respiratory failure secondary to COVID-19 pneumonia Diabetes mellitus type 2, non-insulin dependent History of cerebral palsy Continue treatment per covid protocol -steroids, vitamin supplementation, oxygen supplementation Wean oxygen as tolerated Pulmonology consulted Inflammatory markers elevated, would likely benefit from baricitinib Requiring high levels of oxygen supplementation, on BiPAP insulin sliding scale, long acting if needed VTE: lovenox Code: full Dispo: anticipate hospitalization > 2days Time Spent Managing Pts Care (In Minutes): 35
[2020-12-05] MEDS: MELATONIN 5 MG TABLET PO PRN (20:43)
[2020-12-05] MEDS: ACETAMINOPHEN 500 MG TAB PO PRN (20:44)
[2020-12-06] MEDS: ACETAMINOPHEN 500 MG TAB PO PRN (03:14)
[2020-12-06] MEDS: BENZONATATE 100 MG CAP PO PRN ×3 (03:15→20:23)
[2020-12-06 06:45] LABS: Absolute Lymphocytes (CBC) 0.5 K/uL (0.7-4.9); Basophils % 0.1 % (0-1.3); Hematocrit 37.3 % (39.6-49.0); Lymphocytes % 4.1 % (15.3-44.8); MPV 8.4 fL (7.6-11.3); RBC Red Blood Cell Count 4.44 M/uL (4.33-5.43)
[2020-12-06 07:03] LABS: Albumin 2.5 g/dL (3.4-5.0); Bilirubin Total 0.5 mg/dL (0.2-1.0); C-Reactive Protein 70.4 mg/L (<3.00); Ferritin 554.4 ng/mL (26-388); Magnesium 2.5 mg/dL (1.8-2.4); Potassium 4.2 mmol/L (3.5-5.1); Protein, Total 6.5 g/dL (6.4-8.2)
[2020-12-06 08:05] LABS: Platelet Estimate ADEQ
[2020-12-06 08:06] LABS: Blood Morphology Comment NOTED (NOT SEEN); Burr Cells FEW
[2020-12-06] MEDS ORDERED: ALBUTEROL INHALER 60 PUFF/8 GM IH PRN (08:48)
[2020-12-06] MEDS: ENOXAPARIN 40 MG/0.4 ML SQ SCH (09:00)
[2020-12-06] MEDS: ASCORBIC ACID 500 MG TABLET PO SCH ×4 (09:18→20:23)
[2020-12-06] MEDS: ZINC SULFATE 220 MG CAP PO SCH (09:19)
[2020-12-06] MEDS: THIAMINE HCL 100 MG TABLET PO SCH (09:19)
[2020-12-06] MEDS: ASPIRIN EC 81 MG TAB PO SCH (09:19)
[2020-12-06] MEDS: VITAMIN D 1000 UNIT TAB PO SCH (09:19)
[2020-12-06] MEDS: METHYLPREDNISOLONE 125 MG INJ IV SCH ×3 (09:19→20:24)
[2020-12-06] MEDS: INSULIN -REGULAR HUMAN 50 UNIT/0.5 ML ML SQ SCH ×4 (09:20→20:25)
[2020-12-06] MEDS: FINASTERIDE 5 MG TAB PO SCH (09:24)
[2020-12-06] MEDS: ATORVASTATIN 10 MG TAB PO SCH (09:24)
[2020-12-06] MEDS ORDERED: D50W 25 GM/50 ML SYRINGE IV PRN (09:52)
[2020-12-06] MEDS ORDERED: GLUCAGON 1 MG/VIAL IM PRN (09:52)
[2020-12-06] MEDS: INSULIN GLARGINE 100 UNITS/ML SQ SCH (10:44)
[2020-12-06] MEDS: BARICITINIB 2 MG TABLET PO SCH (12:39)
--- NOTE | 2020-12-06 14:42 | P.PN ---
Subjective Date of Service: 12/06/20 Primary Care Provider: Out of town Chief Complaint: COVID-19 pneumonia Subjective: No new changes (feels about the same, requiring high levels of FiO2 on BIPAP. elevated glucose, does not like bipap mask) Review of Systems 10-point ROS is otherwise unremarkable Physical Examination - Vital Signs Temperature: 97.2 F Blood Pressure: 134/61 Pulse: 84 Respirations: 22 Pulse Ox (%): 92 Assessment & Plan Physician Review Additional Text: Physical Exam General: AAOx3, NAD HEENT: normal conjunctiva, sclera anicteric Respiratory: nonlabored respirations on BIPAP Cardiovascular: Regular rate/rhythm, Normal S1 S2 Gastrointestinal: soft, nontender, nondistended Musculoskeletal: No joint tenderness Integumentary: No rashes Problem List Acute hypoxic respiratory failure secondary to COVID-19 pneumonia Diabetes mellitus type 2, non-insulin dependent History of cerebral palsy Continue treatment per covid protocol -steroids, vitamin supplementation, oxygen supplementation Wean oxygen as tolerated Pulmonology consulted Inflammatory markers elevated, would likely benefit from baricitinib - ordered to start today Requiring high levels of oxygen supplementation, on BiPAP insulin sliding scale, lantus added, titrate as needed VTE: lovenox Code: full Dispo: anticipate hospitalization > 2days Time Spent Managing Pts Care (In Minutes): 35
[2020-12-06] MEDS: MELATONIN 5 MG TABLET PO PRN (20:23)
[2020-12-06] MEDS: MONTELUKAST 10 MG TAB PO SCH (20:23)
[2020-12-07] MEDS: BENZONATATE 100 MG CAP PO PRN ×3 (05:08→20:06)
[2020-12-07] MEDS: LEVOTHYROXINE SOD 0.075 MG TAB PO SCH (05:08)
[2020-12-07 07:04] LABS: Absolute Lymphocytes (CBC) 0.6 K/uL (0.7-4.9); Hematocrit 39.4 % (39.6-49.0); Lymphocytes % 4.9 % (15.3-44.8); MPV 8.2 fL (7.6-11.3); RBC Red Blood Cell Count 4.65 M/uL (4.33-5.43)
[2020-12-07 07:33] LABS: Albumin 2.7 g/dL (3.4-5.0); Bilirubin Total 0.8 mg/dL (0.2-1.0); Magnesium 2.5 mg/dL (1.8-2.4); Potassium 4.4 mmol/L (3.5-5.1); Protein, Total 6.8 g/dL (6.4-8.2)
[2020-12-07] MEDS: INSULIN GLARGINE 100 UNITS/ML SQ SCH ×3 (08:00→16:18)
[2020-12-07 08:02] LABS: C-Reactive Protein 26.4 mg/L (<3.00); Ferritin 635.7 ng/mL (26-388)
--- NOTE | 2020-12-07 08:33 | P.PN ---
Subjective Date of Service: 12/07/20 Primary Care Provider: Out of town Chief Complaint: COVID-19 pneumonia Subjective: No new changes (feels the same, on 85% Fio2 bipap, eating ok, voiding/stooling without issue. getting up to bedside chair.) Review of Systems 10-point ROS is otherwise unremarkable Physical Examination - Vital Signs Temperature: 98.7 F Blood Pressure: 135/62 Pulse: 80 Respirations: 27 Pulse Ox (%): 94 Assessment & Plan Physician Review Additional Text: Physical Exam General: AAOx3, NAD HEENT: normal conjunctiva, sclera anicteric Respiratory: nonlabored respirations on BIPAP Cardiovascular: Regular rate/rhythm, no edema Gastrointestinal: soft, nontender, nondistended Musculoskeletal: No joint tenderness Integumentary: No rashes Problem List Acute hypoxic respiratory failure secondary to COVID-19 pneumonia Diabetes mellitus type 2, non-insulin dependent History of cerebral palsy Continue treatment per covid protocol -steroids, vitamin supplementation, oxygen supplementation Wean oxygen as tolerated Pulmonology consulted Inflammatory markers elevated, baricitinib started 12/06 Requiring high levels of oxygen supplementation, on BiPAP insulin sliding scale, increase lantus elevated d-dimer, change lovenox to eliquis VTE: eliquis Code: full Dispo: anticipate hospitalization > 2days Time Spent Managing Pts Care (In Minutes): 35
[2020-12-07] MEDS: INSULIN -REGULAR HUMAN 50 UNIT/0.5 ML ML SQ SCH ×4 (08:39→20:05)
[2020-12-07] MEDS: METHYLPREDNISOLONE 125 MG INJ IV SCH ×3 (08:39→20:07)
[2020-12-07] MEDS: FINASTERIDE 5 MG TAB PO SCH ×2 (08:40→09:00)
[2020-12-07] MEDS: ENOXAPARIN 40 MG/0.4 ML SQ SCH (08:40)
[2020-12-07] MEDS: ASCORBIC ACID 500 MG TABLET PO SCH ×5 (08:41→20:06)
[2020-12-07] MEDS: THIAMINE HCL 100 MG TABLET PO SCH ×2 (08:41→09:00)
[2020-12-07] MEDS: ASPIRIN EC 81 MG TAB PO SCH ×2 (08:41→09:00)
[2020-12-07] MEDS: VITAMIN D 1000 UNIT TAB PO SCH ×2 (08:42→09:00)
[2020-12-07] MEDS: ATORVASTATIN 10 MG TAB PO SCH ×2 (08:42→09:00)
[2020-12-07] MEDS: ZINC SULFATE 220 MG CAP PO SCH ×2 (08:42→09:00)
[2020-12-07] MEDS: BARICITINIB 2 MG TABLET PO SCH (08:42)
[2020-12-07] MEDS: IVERMECTIN 3 MG TABLET PO SCH (08:43)
[2020-12-07] MEDS: MELATONIN 5 MG TABLET PO PRN (20:06)
[2020-12-07] MEDS: MONTELUKAST 10 MG TAB PO SCH (20:07)
[2020-12-07] MEDS: APIXABAN 5 MG TABLET PO SCH (20:07)
[2020-12-07] MEDS: ACETAMINOPHEN 500 MG TAB PO PRN (23:02)
[2020-12-08] MEDS: BENZONATATE 100 MG CAP PO PRN ×3 (03:41→20:11)
[2020-12-08] MEDS: LEVOTHYROXINE SOD 0.075 MG TAB PO SCH (05:03)
[2020-12-08 06:23] LABS: Absolute Lymphocytes (CBC) 0.6 K/uL (0.7-4.9); Basophils % 0.1 % (0-1.3); Hematocrit 38.8 % (39.6-49.0); Lymphocytes % 4.2 % (15.3-44.8); MPV 8.6 fL (7.6-11.3); RBC Red Blood Cell Count 4.62 M/uL (4.33-5.43)
[2020-12-08 06:35] LABS: C-Reactive Protein 11.5 mg/L (<3.00); Ferritin 515.9 ng/mL (26-388); Magnesium 2.7 mg/dL (1.8-2.4); Potassium 4.5 mmol/L (3.5-5.1)
[2020-12-08] MEDS: INSULIN GLARGINE 100 UNITS/ML SQ SCH ×2 (07:51→16:26)
[2020-12-08] MEDS: INSULIN -REGULAR HUMAN 50 UNIT/0.5 ML ML SQ SCH ×4 (07:52→20:12)
[2020-12-08] MEDS: BARICITINIB 2 MG TABLET PO SCH (08:14)
[2020-12-08] MEDS: METHYLPREDNISOLONE 125 MG INJ IV SCH ×2 (08:14→13:28)
[2020-12-08] MEDS: ASPIRIN EC 81 MG TAB PO SCH (08:15)
[2020-12-08] MEDS: APIXABAN 5 MG TABLET PO SCH ×2 (08:15→20:11)
[2020-12-08] MEDS: ATORVASTATIN 10 MG TAB PO SCH (08:15)
[2020-12-08] MEDS: ASCORBIC ACID 500 MG TABLET PO SCH ×4 (08:16→20:11)
[2020-12-08] MEDS: VITAMIN D 1000 UNIT TAB PO SCH (08:16)
[2020-12-08] MEDS: THIAMINE HCL 100 MG TABLET PO SCH (08:16)
[2020-12-08] MEDS: FINASTERIDE 5 MG TAB PO SCH (08:16)
[2020-12-08] MEDS: ZINC SULFATE 220 MG CAP PO SCH (08:16)
--- NOTE | 2020-12-08 09:00 | P.PN ---
Subjective Date of Service: 12/08/20 Primary Care Provider: Out of town Chief Complaint: COVID-19 pneumonia Subjective: Improving (feels better today, good appetite. still requiring high level of fio2 on bipap. inflammatory markers improved. glc slightly improved with increase of insulin. no new complaints.) Review of Systems 10-point ROS is otherwise unremarkable Physical Examination - Vital Signs Temperature: 98.2 F Blood Pressure: 135/60 Pulse: 74 Respirations: 25 Pulse Ox (%): 96 Assessment & Plan Physician Review Additional Text: Physical Exam General: AAOx3, NAD, sitting in chair HEENT: normal conjunctiva, sclera anicteric Respiratory: tachypnic on BIPAP 100% FIo2 Cardiovascular: Regular rate/rhythm, no edema Gastrointestinal: soft, nontender, nondistended Integumentary: No rashes Problem List Acute hypoxic respiratory failure secondary to COVID-19 pneumonia Diabetes mellitus type 2, non-insulin dependent History of cerebral palsy Continue treatment per covid protocol -steroids, vitamin supplementation, oxygen supplementation decrease steroids to 40 q8h Wean oxygen as tolerated Pulmonology consulted Inflammatory markers elevated, baricitinib started 12/06; improving Requiring high levels of oxygen supplementation, on BiPAP insulin sliding scale, continue lantus, steroid dose reduced elevated d-dimer, continue eliquis VTE: eliquis Code: full Dispo: anticipate hospitalization > 2 days guarded prognosis updated Time Spent Managing Pts Care (In Minutes): 40
--- NOTE | 2020-12-08 15:28 | RAD REPORT ---
EXAM DESCRIPTION: RAD - Chest Single View - 12/08/2020 3:17 pm CLINICAL HISTORY: hypoxia, COVID Chest pain. COMPARISON: Chest Single View dated 12/04/2020; Chest Pa And Lat (2 Views) dated 12/28/2015 FINDINGS: Portable technique limits examination quality. Moderate bilateral pulmonary opacities show mild improvement since comparative study. The heart is no rmal in size. No displaced fractures. IMPRESSION: Mild improvement in lung aeration since comparative study
[2020-12-08] MEDS: MELATONIN 5 MG TABLET PO PRN (20:11)
[2020-12-08] MEDS: METHYLPREDNISOLONE 40 MG INJ IV SCH (20:11)
[2020-12-08] MEDS: MONTELUKAST 10 MG TAB PO SCH (20:11)
[2020-12-09] MEDS: BENZONATATE 100 MG CAP PO PRN ×3 (05:24→21:04)
[2020-12-09] MEDS: LEVOTHYROXINE SOD 0.075 MG TAB PO SCH (05:24)
[2020-12-09 07:37] LABS: Sodium Level 141 mmol/L (136-145)
[2020-12-09 07:38] LABS: ALT/SGPT 64 U/L (12-78); AST/SGOT 44 U/L (15-37); Albumin 2.7 g/dL (3.4-5.0); Alkaline Phosphatase 79 U/L (45-117); BUN Blood Urea Nitrogen 34 mg/dL (7-18); Bicarbonate 31 mmol/L (21-32); C-Reactive Protein 6.05 mg/L (<3.00); Ferritin 426.5 ng/mL (26-388); Glucose Level 187 mg/dL (74-106); Magnesium 2.6 mg/dL (1.8-2.4); Potassium 4.4 mmol/L (3.5-5.1); Protein, Total 6.7 g/dL (6.4-8.2)
--- NOTE | 2020-12-09 07:54 | P.PN ---
Subjective Date of Service: 12/09/20 Primary Care Provider: Out of town Chief Complaint: COVID-19 pneumonia Subjective: Improving (feeling better today, eating more, more energy, off BIPAP and on nonrebreather) Review of Systems 10-point ROS is otherwise unremarkable Physical Examination - Vital Signs Temperature: 97.2 F Blood Pressure: 157/71 Pulse: 68 Respirations: 20 Pulse Ox (%): 95 Assessment & Plan Physician Review Additional Text: Physical Exam General: AAOx3, NAD, sitting in chair HEENT: normal conjunctiva, sclera anicteric Respiratory: slightly tachypneic on nonrebreather Cardiovascular: Regular rate/rhythm, no edema Gastrointestinal: soft, nontender, nondistended Integumentary: No rashes Problem List Acute hypoxic respiratory failure secondary to COVID-19 pneumonia Diabetes mellitus type 2, non-insulin dependent History of cerebral palsy Continue treatment per covid protocol -steroids, vitamin supplementation, oxygen supplementation decrease steroids to 40 q8h on 12/08 Wean oxygen as tolerated Pulmonology consulted - lasix x1 on 12/09 Inflammatory markers elevated, baricitinib started 12/06 Requiring high levels of oxygen supplementation, on BiPAP / nonrebreather insulin sliding scale, continue lantus elevated d-dimer, continue eliquis reports feeling better CXR (12/08) with mild improvement VTE: eliquis Code: full Dispo: anticipate hospitalization > 2 days guarded prognosis Time Spent Managing Pts Care (In Minutes): 40
[2020-12-09] MEDS: VITAMIN D 1000 UNIT TAB PO SCH (07:55)
[2020-12-09] MEDS: ASPIRIN EC 81 MG TAB PO SCH (07:56)
[2020-12-09] MEDS: ATORVASTATIN 10 MG TAB PO SCH (07:56)
[2020-12-09] MEDS: ASCORBIC ACID 500 MG TABLET PO SCH ×4 (07:56→21:04)
[2020-12-09] MEDS: ZINC SULFATE 220 MG CAP PO SCH (07:56)
[2020-12-09] MEDS: BARICITINIB 2 MG TABLET PO SCH (07:56)
[2020-12-09] MEDS: FINASTERIDE 5 MG TAB PO SCH (07:57)
[2020-12-09] MEDS: THIAMINE HCL 100 MG TABLET PO SCH (07:57)
[2020-12-09] MEDS: METHYLPREDNISOLONE 40 MG INJ IV SCH ×3 (07:57→21:04)
[2020-12-09] MEDS: APIXABAN 5 MG TABLET PO SCH ×2 (07:57→21:04)
[2020-12-09] MEDS: INSULIN -REGULAR HUMAN 50 UNIT/0.5 ML ML SQ SCH ×4 (08:02→21:03)
[2020-12-09] MEDS: INSULIN GLARGINE 100 UNITS/ML SQ SCH ×2 (08:03→16:28)
--- NOTE | 2020-12-09 11:14 | P.PN ---
Subjective Date of Service: 12/09/20 Primary Care Provider: Out of town Chief Complaint: COVID-19 pneumonia Subjective: Improving (Doign better weanign down on o2) Review of Systems General: Weakness Respiratory: Shortness of Breath Physical Examination - Vital Signs Temperature: 97.6 F Blood Pressure: 155/70 Pulse: 71 Respirations: 30 Pulse Ox (%): 90 - Physical Exam General: Alert, In no apparent distress, Oriented x3, Cooperative Assessment & Plan - Problems (Diagnosis) (1) Pneumonia due to COVID-19 virus Current Visit: Yes Status: Acute Plan: Doign well CW weanign down on O2/ Add lasix
[2020-12-09] MEDS ORDERED: FUROSEMIDE 20 MG/ 2ML VIAL IV ONE (12:00)
[2020-12-09] MEDS: MONTELUKAST 10 MG TAB PO SCH (21:04)
[2020-12-10] MEDS: HYDROCODONE/CHLORPHEN 5 ML/OSYR PO PRN ×2 (02:31→12:55)
[2020-12-10] MEDS: LEVOTHYROXINE SOD 0.075 MG TAB PO SCH (06:10)
[2020-12-10] MEDS: INSULIN GLARGINE 100 UNITS/ML SQ SCH ×2 (08:24→16:31)
[2020-12-10] MEDS: INSULIN -REGULAR HUMAN 50 UNIT/0.5 ML ML SQ SCH ×4 (08:24→21:09)
[2020-12-10] MEDS: VITAMIN D 1000 UNIT TAB PO SCH (08:24)
[2020-12-10] MEDS: APIXABAN 5 MG TABLET PO SCH ×2 (08:25→21:08)
[2020-12-10] MEDS: ASCORBIC ACID 500 MG TABLET PO SCH ×4 (08:25→21:09)
[2020-12-10] MEDS: ZINC SULFATE 220 MG CAP PO SCH (08:26)
[2020-12-10] MEDS: ASPIRIN EC 81 MG TAB PO SCH (08:26)
[2020-12-10] MEDS: BARICITINIB 2 MG TABLET PO SCH (08:26)
[2020-12-10] MEDS: ATORVASTATIN 10 MG TAB PO SCH (08:26)
[2020-12-10] MEDS: THIAMINE HCL 100 MG TABLET PO SCH (08:26)
[2020-12-10] MEDS: FINASTERIDE 5 MG TAB PO SCH (08:26)
[2020-12-10] MEDS: METHYLPREDNISOLONE 40 MG INJ IV SCH ×3 (08:27→21:09)
[2020-12-10 09:21] LABS: Hematocrit 40.3 % (39.6-49.0); MPV 9.2 fL (7.6-11.3); RBC Red Blood Cell Count 4.71 M/uL (4.33-5.43)
[2020-12-10 09:24] LABS: BUN Blood Urea Nitrogen 33 mg/dL (7-18); Bicarbonate 31 mmol/L (21-32); C-Reactive Protein 9.36 mg/L (<3.00); Ferritin 455.7 ng/mL (26-388); Glucose Level 229 mg/dL (74-106); Magnesium 2.4 mg/dL (1.8-2.4); Potassium 4.4 mmol/L (3.5-5.1); Sodium Level 138 mmol/L (136-145)
--- NOTE | 2020-12-10 14:34 | P.PN ---
Subjective Date of Service: 12/10/20 Primary Care Provider: Out of town Chief Complaint: COVID-19 pneumonia Nc still on high concentration of O2 Review of Systems General: Weakness Respiratory: Shortness of Breath Physical Examination - Vital Signs Temperature: 97.6 F Blood Pressure: 142/65 Pulse: 83 Respirations: 22 Pulse Ox (%): 93 - Physical Exam General: Alert, Oriented x3, Cooperative - Studies Microbiology Data (last 24 hrs): 12/04/20 21:04 Blood - Blood Aerobic Blood Culture - Final No growth in 5 days. 12/04/20 21:04 Blood - Blood Anaerobic Blood Culture - Final No growth in 5 days. 12/04/20 21:10 Blood - Blood Aerobic Blood Culture - Final No growth in 5 days. 12/04/20 21:10 Blood - Blood Anaerobic Blood Culture - Final No growth in 5 days. Assessment & Plan - Problems (Diagnosis) (1) Pneumonia due to COVID-19 virus Current Visit: Yes Status: Acute Plan: Resp failure NC so far/ on Max Tx/labs reviewed/ increase steroids again
--- NOTE | 2020-12-10 18:20 | P.PN ---
Subjective Date of Service: 12/10/20 Primary Care Provider: Out of town Chief Complaint: COVID-19 pneumonia Subjective: Improving (feels better today, more energy, less winded when talking) Review of Systems 10-point ROS is otherwise unremarkable Physical Examination - Vital Signs Temperature: 98.3 F Blood Pressure: 141/66 Pulse: 88 Respirations: 22 Pulse Ox (%): 91 - Studies Microbiology Data (last 24 hrs): 12/04/20 21:04 Blood - Blood Aerobic Blood Culture - Final No growth in 5 days. 12/04/20 21:04 Blood - Blood Anaerobic Blood Culture - Final No growth in 5 days. 12/04/20 21:10 Blood - Blood Aerobic Blood Culture - Final No growth in 5 days. 12/04/20 21:10 Blood - Blood Anaerobic Blood Culture - Final No growth in 5 days. Assessment & Plan Physician Review Additional Text: Physical Exam General: AAOx3, NAD, sitting in chair at bedside HEENT: normal conjunctiva, sclera anicteric Respiratory: nonlabored on bipap Cardiovascular: Regular rate/rhythm, trace-1+ edema Gastrointestinal: soft, nontender, nondistended Integumentary: No rashes Problem List Acute hypoxic respiratory failure secondary to COVID-19 pneumonia Diabetes mellitus type 2, non-insulin dependent History of cerebral palsy Continue treatment per covid protocol -steroids, vitamin supplementation, oxygen supplementation decreased steroids to 40 q8h on 12/08, increased again 12/10 Wean oxygen as tolerated Pulmonology consulted - lasix x1 on 12/09 Inflammatory markers elevated, baricitinib started 12/06 Requiring high levels of oxygen supplementation, on BiPAP / nonrebreather insulin sliding scale, continue lantus - increase for better control elevated d-dimer, continue eliquis reports feeling better - more energy, eating 1/4 plate, but taking ensure CXR (12/08) with mild improvement VTE: eliquis Code: full Dispo: anticipate hospitalization > 2 days guarded prognosis Time Spent Managing Pts Care (In Minutes): 35
[2020-12-10] MEDS: MELATONIN 5 MG TABLET PO PRN (21:08)
[2020-12-10] MEDS: BENZONATATE 100 MG CAP PO PRN (21:08)
[2020-12-10] MEDS: MONTELUKAST 10 MG TAB PO SCH (21:10)
[2020-12-11] MEDS: HYDROCODONE/CHLORPHEN 5 ML/OSYR PO PRN (00:41)
[2020-12-11 05:31] LABS: Hematocrit 38.5 % (39.6-49.0); MPV 8.6 fL (7.6-11.3); RBC Red Blood Cell Count 4.54 M/uL (4.33-5.43)
[2020-12-11 05:56] LABS: ALT/SGPT 48 U/L (12-78); AST/SGOT 25 U/L (15-37); Albumin 2.4 g/dL (3.4-5.0); Alkaline Phosphatase 73 U/L (45-117); BUN Blood Urea Nitrogen 31 mg/dL (7-18); Bicarbonate 30 mmol/L (21-32); Ferritin 420.1 ng/mL (26-388); Glucose Level 176 mg/dL (74-106); Magnesium 2.3 mg/dL (1.8-2.4); Potassium 4.6 mmol/L (3.5-5.1); Protein, Total 6.1 g/dL (6.4-8.2); Sodium Level 139 mmol/L (136-145)
[2020-12-11] MEDS: LEVOTHYROXINE SOD 0.075 MG TAB PO SCH (06:32)
--- NOTE | 2020-12-11 06:49 | P.PN ---
Subjective Date of Service: 12/11/20 Primary Care Provider: Out of town Chief Complaint: COVID-19 pneumonia Subjective: Improving (feeling better, eating, drinking ~2 ensures/day) Review of Systems 10-point ROS is otherwise unremarkable Physical Examination - Vital Signs Temperature: 98 F Blood Pressure: 135/62 Pulse: 84 Respirations: 20 Pulse Ox (%): 92 Assessment & Plan Physician Review Additional Text: Physical Exam General: AAOx3, NAD, sitting in chair at bedside HEENT: normal conjunctiva, sclera anicteric Respiratory: nonlabored on nonrebreather Cardiovascular: Regular rate/rhythm, trace-1+ edema Gastrointestinal: soft, nontender, nondistended Integumentary: No rashes Problem List Acute hypoxic respiratory failure secondary to COVID-19 pneumonia Diabetes mellitus type 2, non-insulin dependent History of cerebral palsy Continue treatment per covid protocol -steroids, vitamin supplementation, oxygen supplementation decreased steroids to 40 q8h on 12/08, increased again 12/10 Wean oxygen as tolerated Pulmonology consulted - lasix x1 on 12/09 Inflammatory markers elevated, baricitinib started 12/06 Requiring high levels of oxygen supplementation, on BiPAP / nonrebreather insulin sliding scale, continue lantus - increase for better control elevated d-dimer, continue eliquis reports feeling better - more energy, eating 05/08 plate, but taking ensure CXR (12/08) with mild improvement VTE: eliquis Code: full Dispo: anticipate hospitalization > 2 days guarded prognosis discussed with , may be appropriate for LTAC, slow to improve, but currently 90% Fio2, seems receptive, but wants to think about it will discuss with patient in the next day or 2 if seems appropriate Time Spent Managing Pts Care (In Minutes): 35
--- NOTE | 2020-12-11 07:59 | RAD REPORT ---
EXAM DESCRIPTION: Ronnie Single View12/11/2020 7:08 am CLINICAL HISTORY: Chest pain COMPARISON: December 08 2020 FINDINGS: No significant change in the bilateral pulmonary opacities Heart is normal size IMPRESSION: No significant change in bilateral pulmonary opacities probably pneumonia
[2020-12-11] MEDS: ATORVASTATIN 10 MG TAB PO SCH (08:23)
[2020-12-11] MEDS: METHYLPREDNISOLONE 40 MG INJ IV SCH ×2 (08:23→13:23)
[2020-12-11] MEDS: ASPIRIN EC 81 MG TAB PO SCH (08:30)
[2020-12-11] MEDS: ZINC SULFATE 220 MG CAP PO SCH (08:30)
[2020-12-11] MEDS: APIXABAN 5 MG TABLET PO SCH ×2 (08:31→20:57)
[2020-12-11] MEDS: THIAMINE HCL 100 MG TABLET PO SCH (08:31)
[2020-12-11] MEDS: ASCORBIC ACID 500 MG TABLET PO SCH ×4 (08:31→20:57)
[2020-12-11] MEDS: BARICITINIB 2 MG TABLET PO SCH (08:31)
[2020-12-11] MEDS: FINASTERIDE 5 MG TAB PO SCH (08:31)
[2020-12-11] MEDS: VITAMIN D 1000 UNIT TAB PO SCH (08:31)
[2020-12-11] MEDS: INSULIN -REGULAR HUMAN 50 UNIT/0.5 ML ML SQ SCH ×4 (09:02→20:58)
[2020-12-11] MEDS: INSULIN GLARGINE 100 UNITS/ML SQ SCH ×2 (09:02→16:22)
[2020-12-11] MEDS: METHYLPREDNISOLONE 125 MG INJ IV SCH ×2 (14:00→20:58)
[2020-12-11] MEDS: GLUCERNA SHAKE 237 ML CAN PO SCH (20:57)
[2020-12-11] MEDS: MONTELUKAST 10 MG TAB PO SCH (20:58)
--- NOTE | 2020-12-11 21:00 | P.PN ---
Subjective Date of Service: 12/11/20 Primary Care Provider: Out of town Chief Complaint: COVID-19 pneumonia NC on BIPAP and highconc of Fio2 Review of Systems General: Weakness Respiratory: Shortness of Breath Physical Examination - Vital Signs Temperature: 98 F Blood Pressure: 135/62 Pulse: 84 Respirations: 20 Pulse Ox (%): 92 - Physical Exam General: Alert, Oriented x3, Cooperative, Mild distress Assessment & Plan - Problems (Diagnosis) (1) Pneumonia due to COVID-19 virus Current Visit: Yes Status: Acute Plan: Resp failure/ CW supportive [place] wean down on O2
[2020-12-12] MEDS: HYDROCODONE/CHLORPHEN 5 ML/OSYR PO PRN ×2 (00:20→10:31)
[2020-12-12] MEDS: LEVOTHYROXINE SOD 0.075 MG TAB PO SCH (05:37)
[2020-12-12 05:53] LABS: Absolute Lymphocytes (CBC) 0.6 K/uL (0.7-4.9); Basophils % 0.2 % (0-1.3); Hematocrit 35.9 % (39.6-49.0); Lymphocytes % 2.4 % (15.3-44.8); MPV 8.5 fL (7.6-11.3); RBC Red Blood Cell Count 4.21 M/uL (4.33-5.43)
[2020-12-12 06:22] LABS: BUN Blood Urea Nitrogen 30 mg/dL (7-18); Bicarbonate 28 mmol/L (21-32); Ferritin 406.8 ng/mL (26-388); Glucose Level 164 mg/dL (74-106); Magnesium 2.4 mg/dL (1.8-2.4); Potassium 4.8 mmol/L (3.5-5.1); Sodium Level 138 mmol/L (136-145)
[2020-12-12] MEDS: ASCORBIC ACID 500 MG TABLET PO SCH ×5 (09:00→20:21)
[2020-12-12 09:01] LABS: Blood Morphology Comment NOT SEEN (NOT SEEN); Platelet Estimate ADEQ
[2020-12-12] MEDS: VITAMIN D 1000 UNIT TAB PO SCH (09:19)
[2020-12-12] MEDS: ASPIRIN EC 81 MG TAB PO SCH (09:19)
[2020-12-12] MEDS: ATORVASTATIN 10 MG TAB PO SCH (09:19)
[2020-12-12] MEDS: APIXABAN 5 MG TABLET PO SCH ×2 (09:20→20:20)
[2020-12-12] MEDS: ZINC SULFATE 220 MG CAP PO SCH (09:20)
[2020-12-12] MEDS: FINASTERIDE 5 MG TAB PO SCH (09:20)
[2020-12-12] MEDS: METHYLPREDNISOLONE 125 MG INJ IV SCH ×3 (09:20→20:20)
[2020-12-12] MEDS: BARICITINIB 2 MG TABLET PO SCH (09:20)
[2020-12-12] MEDS: THIAMINE HCL 100 MG TABLET PO SCH (09:20)
[2020-12-12] MEDS: INSULIN -REGULAR HUMAN 50 UNIT/0.5 ML ML SQ SCH ×4 (09:21→20:21)
[2020-12-12] MEDS: INSULIN GLARGINE 100 UNITS/ML SQ SCH ×2 (09:21→16:26)
[2020-12-12] MEDS: GLUCERNA SHAKE 237 ML CAN PO SCH ×2 (09:22→20:22)
--- NOTE | 2020-12-12 18:22 | P.PN ---
Subjective Date of Service: 12/12/20 Primary Care Provider: Out of town Chief Complaint: COVID-19 pneumonia Patient on BiPAP. No major changes from yesterday. Physical Examination - Vital Signs Temperature: 98.7 F Blood Pressure: 133/66 Pulse: 97 Respirations: 28 Pulse Ox (%): 100 - Physical Exam General: In no apparent distress, Oriented x3 HEENT: Other (BiPAP) Neck: JVD not distended Respiratory: Other (Nonlabored breathing) Cardiovascular: Regular rate/rhythm, Normal S1 S2 Gastrointestinal: Soft and benign, Non-distended Musculoskeletal: No swelling Integumentary: No rashes Neurological: Normal strength at 5/5 x4 extr Assessment And Plan Physician Review Additional Text: Problem List Acute hypoxic respiratory failure secondary to COVID-19 pneumonia Diabetes mellitus type 2, non-insulin dependent History of cerebral palsy Continue treatment per covid protocol -steroids, vitamin supplementation, oxygen supplementation Continue current dose steroid. Wean oxygen as tolerated Pulmonology is following Inflammatory markers elevated, on Baracitinib Requiring high levels of oxygen supplementation, on BiPAP / nonrebreather insulin sliding scale, titrate Lantus insulin Continue eliquis VTE: eliquis Code: full Dispo: anticipate hospitalization > 2 days guarded prognosis
[2020-12-12] MEDS: MONTELUKAST 10 MG TAB PO SCH (20:20)
[2020-12-13] MEDS: HYDROCODONE/CHLORPHEN 5 ML/OSYR PO PRN ×2 (01:15→22:20)
[2020-12-13] MEDS: LEVOTHYROXINE SOD 0.075 MG TAB PO SCH (05:13)
[2020-12-13 05:47] LABS: Absolute Lymphocytes (CBC) 0.5 K/uL (0.7-4.9); Hematocrit 33.4 % (39.6-49.0); MPV 8.6 fL (7.6-11.3); RBC Red Blood Cell Count 3.93 M/uL (4.33-5.43)
[2020-12-13 05:59] LABS: BUN Blood Urea Nitrogen 32 mg/dL (7-18); Bicarbonate 29 mmol/L (21-32); Glucose Level 165 mg/dL (74-106); Potassium 4.4 mmol/L (3.5-5.1); Sodium Level 140 mmol/L (136-145)
[2020-12-13 08:52] LABS: Blood Morphology Comment NOT SEEN (NOT SEEN); Platelet Estimate ADEQ
[2020-12-13] MEDS: INSULIN -REGULAR HUMAN 50 UNIT/0.5 ML ML SQ SCH ×4 (09:15→21:58)
[2020-12-13] MEDS: INSULIN GLARGINE 100 UNITS/ML SQ SCH ×2 (09:16→17:06)
[2020-12-13] MEDS: APIXABAN 5 MG TABLET PO SCH ×2 (09:16→21:58)
[2020-12-13] MEDS: VITAMIN D 1000 UNIT TAB PO SCH (09:16)
[2020-12-13] MEDS: ASPIRIN EC 81 MG TAB PO SCH (09:16)
[2020-12-13] MEDS: THIAMINE HCL 100 MG TABLET PO SCH (09:17)
[2020-12-13] MEDS: ZINC SULFATE 220 MG CAP PO SCH (09:17)
[2020-12-13] MEDS: ATORVASTATIN 10 MG TAB PO SCH (09:17)
[2020-12-13] MEDS: FINASTERIDE 5 MG TAB PO SCH (09:17)
[2020-12-13] MEDS: GLUCERNA SHAKE 237 ML CAN PO SCH ×2 (09:17→21:00)
[2020-12-13] MEDS: BARICITINIB 2 MG TABLET PO SCH (09:17)
[2020-12-13] MEDS: METHYLPREDNISOLONE 125 MG INJ IV SCH ×3 (09:17→21:57)
[2020-12-13] MEDS: ASCORBIC ACID 500 MG TABLET PO SCH ×4 (09:17→21:58)
--- NOTE | 2020-12-13 14:45 | P.PN ---
Subjective Date of Service: 12/13/20 Primary Care Provider: Out of town Chief Complaint: COVID-19 pneumonia very hypoxic nC Review of Systems Respiratory: Shortness of Breath Physical Examination - Vital Signs Temperature: 97.8 F Blood Pressure: 142/69 Pulse: 99 Respirations: 37 Pulse Ox (%): 89 Assessment & Plan - Problems (Diagnosis) (1) Pneumonia due to COVID-19 virus Current Visit: Yes Status: Acute Plan: Resp failure add lasix Po/ on max tx/ labs rev/ WBC elevated
[2020-12-13] MEDS: FUROSEMIDE 40 MG TABLET PO SCH (17:02)
--- NOTE | 2020-12-13 17:16 | P.PN ---
Subjective Date of Service: 12/13/20 Primary Care Provider: Out of town Chief Complaint: COVID-19 pneumonia Patient on BiPAP. No major changes. Physical Examination - Vital Signs Temperature: 97.8 F Blood Pressure: 132/63 Pulse: 99 Respirations: 37 Pulse Ox (%): 89 - Physical Exam General: Alert, In no apparent distress HEENT: Other (BiPAP) Neck: JVD not distended Respiratory: Other (Nonlabored breathing) Cardiovascular: Regular rate/rhythm, Normal S1 S2 Gastrointestinal: Soft and benign, Non-distended Musculoskeletal: No swelling Integumentary: No rashes Neurological: Normal strength at 5/5 x4 extr Assessment And Plan Physician Review Additional Text: Problem List Acute hypoxic respiratory failure secondary to COVID-19 pneumonia Diabetes mellitus type 2, non-insulin dependent History of cerebral palsy Continue treatment per covid protocol -steroids, vitamin supplementation, oxygen supplementation Continue current dose steroid. Weaned off BiPAP as tolerated Pulmonology is following On Baracitinib insulin sliding scale, titrate Lantus insulin Continue eliquis VTE: eliquis Code: full
[2020-12-13] MEDS: MELATONIN 5 MG TABLET PO PRN (21:58)
[2020-12-13] MEDS: MONTELUKAST 10 MG TAB PO SCH (21:59)
[2020-12-14] MEDS: LEVOTHYROXINE SOD 0.075 MG TAB PO SCH (06:02)
[2020-12-14 07:16] LABS: Hematocrit 32.2 % (39.6-49.0); RBC Red Blood Cell Count 3.79 M/uL (4.33-5.43)
[2020-12-14 07:17] LABS: Absolute Lymphocytes (CBC) 0.5 K/uL (0.7-4.9); Basophils % 0.1 % (0-1.3); Lymphocytes % 1.7 % (15.3-44.8); MPV 8.2 fL (7.6-11.3)
[2020-12-14 07:28] LABS: Potassium 4.3 mmol/L (3.5-5.1)
[2020-12-14] MEDS: BARICITINIB 2 MG TABLET PO SCH (08:11)
[2020-12-14] MEDS: VITAMIN D 1000 UNIT TAB PO SCH (08:12)
[2020-12-14] MEDS: FINASTERIDE 5 MG TAB PO SCH (08:13)
[2020-12-14] MEDS: ASPIRIN EC 81 MG TAB PO SCH (08:13)
[2020-12-14] MEDS: FUROSEMIDE 40 MG TABLET PO SCH (08:13)
[2020-12-14] MEDS: APIXABAN 5 MG TABLET PO SCH ×2 (08:14→20:58)
[2020-12-14] MEDS: ZINC SULFATE 220 MG CAP PO SCH (08:14)
[2020-12-14] MEDS: METHYLPREDNISOLONE 125 MG INJ IV SCH ×3 (08:14→20:58)
[2020-12-14] MEDS: THIAMINE HCL 100 MG TABLET PO SCH (08:14)
[2020-12-14] MEDS: ATORVASTATIN 10 MG TAB PO SCH (08:14)
[2020-12-14] MEDS: ASCORBIC ACID 500 MG TABLET PO SCH ×4 (08:14→20:59)
[2020-12-14] MEDS: INSULIN -REGULAR HUMAN 50 UNIT/0.5 ML ML SQ SCH ×4 (08:15→20:58)
[2020-12-14] MEDS: INSULIN GLARGINE 100 UNITS/ML SQ SCH ×2 (08:15→16:27)
[2020-12-14] MEDS: GLUCERNA SHAKE 237 ML CAN PO SCH ×2 (08:16→20:59)
[2020-12-14] MEDS: HYDROCODONE/CHLORPHEN 5 ML/OSYR PO PRN ×2 (08:41→20:59)
--- NOTE | 2020-12-14 12:28 | P.PN ---
Subjective Date of Service: 12/14/20 Primary Care Provider: Out of town Chief Complaint: COVID-19 pneumonia feels a little bit better. denies any n/v/d Review of Systems 10-point ROS is otherwise unremarkable Physical Examination - Vital Signs Temperature: 97.9 F Blood Pressure: 119/55 Pulse: 106 Respirations: 24 Pulse Ox (%): 86 Assessment And Plan Physician Review Additional Text: Physical Exam: General: alert, cooperative Respiratory: increased work of breathing, on BIPAP Cardiovascular: mildly tachycardic Gastrointestinal: soft and benign, non-tender Musculoskeletal: no swelling Integumentary: no rashes Neurological: moving all extremities bilaterally Problem List Acute hypoxic respiratory failure secondary to COVID-19 pneumonia Diabetes mellitus type 2, non-insulin dependent History of cerebral palsy Plan Continue treatment per covid protocol -steroids, vitamin supplementation, oxygen supplementation Continue current dose steroid. Wean off BiPAP as tolerated Pulmonology is following - added lasix On Baracitinib Insulin sliding scale, titrate Lantus insulin Continue eliquis VTE: eliquis Code: strategic manager Spent Managing PTS Care (In Minutes): 35
[2020-12-14] MEDS: MONTELUKAST 10 MG TAB PO SCH (20:58)
[2020-12-14] MEDS: MELATONIN 5 MG TABLET PO PRN (20:58)
[2020-12-15 00:37] LABS: Arterial Blood Carboxyhemoglob 0.7 % (0-1.5); Blood Gas Oxyhemoglobin 85.7 % (94-97); Blood O2 Saturation 87.5 % (92-98.5)
[2020-12-15] MEDS: ONDANSETRON 4 MG/2 ML VIAL IV PRN (02:54)
[2020-12-15] MEDS: BENZONATATE 100 MG CAP PO PRN (02:54)
[2020-12-15] MEDS: LEVOTHYROXINE SOD 0.075 MG TAB PO SCH (05:38)
[2020-12-15] MEDS: INSULIN -REGULAR HUMAN 50 UNIT/0.5 ML ML SQ SCH ×4 (07:30→21:10)
[2020-12-15] MEDS: FUROSEMIDE 40 MG TABLET PO SCH (08:32)
[2020-12-15] MEDS: ZINC SULFATE 220 MG CAP PO SCH (08:32)
[2020-12-15] MEDS: THIAMINE HCL 100 MG TABLET PO SCH (08:32)
[2020-12-15] MEDS: ASCORBIC ACID 500 MG TABLET PO SCH ×4 (08:32→21:11)
[2020-12-15] MEDS: VITAMIN D 1000 UNIT TAB PO SCH (08:32)
[2020-12-15] MEDS: ASPIRIN EC 81 MG TAB PO SCH (08:35)
[2020-12-15] MEDS: BARICITINIB 2 MG TABLET PO SCH (08:35)
[2020-12-15] MEDS: HYDROCODONE/CHLORPHEN 5 ML/OSYR PO PRN ×2 (08:35→21:11)
[2020-12-15] MEDS: ATORVASTATIN 10 MG TAB PO SCH (08:35)
[2020-12-15] MEDS: APIXABAN 5 MG TABLET PO SCH ×2 (08:35→21:11)
[2020-12-15] MEDS: FINASTERIDE 5 MG TAB PO SCH (08:35)
[2020-12-15] MEDS: GLUCERNA SHAKE 237 ML CAN PO SCH ×2 (08:36→21:11)
[2020-12-15] MEDS: METHYLPREDNISOLONE 125 MG INJ IV SCH ×3 (08:36→21:11)
[2020-12-15] MEDS: INSULIN GLARGINE 100 UNITS/ML SQ SCH ×2 (08:37→16:00)
--- NOTE | 2020-12-15 13:30 | P.PN ---
Subjective Date of Service: 12/15/20 Primary Care Provider: Out of town Chief Complaint: COVID-19 pneumonia Patient is currently BiPAP dependent. No major changes. Physical Examination - Vital Signs Temperature: 97.6 F Blood Pressure: 136/74 Pulse: 104 Respirations: 20 Pulse Ox (%): 95 - Physical Exam General: Other (Awake) HEENT: Other (BiPAP) Respiratory: Other (Nonlabored breathing) Cardiovascular: No edema, Normal S1 S2, Other (Tachycardia) Gastrointestinal: Soft and benign, Non-distended Musculoskeletal: No swelling Integumentary: No rashes Neurological: Normal strength at 5/5 x4 extr Assessment And Plan Physician Review Additional Text: Problem List Acute hypoxic respiratory failure secondary to COVID-19 pneumonia Diabetes mellitus type 2, non-insulin dependent History of cerebral palsy Plan Continue treatment per covid protocol -steroids, vitamin supplementation, oxygen supplementation Continue current dose steroid. Wean off BiPAP as tolerated Pulmonology is following - added lasix On Baracitinib Insulin sliding scale, titrate Lantus insulin Continue eliquis VTE: eliquis Code: full
--- NOTE | 2020-12-15 20:55 | RAD REPORT ---
EXAM DESCRIPTION: CT Head and Cervical Spine Without Intravenous Contrast CLINICAL HISTORY: The patient is 70 years old and is Male; fall TECHNIQUE: Axial computed tomography images of the head/brain and cervical spine without intravenous contrast. Sagittal and coronal reformatted images were created and reviewed. This CT exam was pe rformed using one or more of the following dose reduction techniques: automated exposure control, a djustment of the mA and/or kV according to patient size, and/or use of iterative reconstruction techn ique. COMPARISON: No relevant prior studies available. FINDINGS: Brain: Mild nonspecific white matter changes likely related to chronic microvascular isc hemic disease. Mild cerebral atrophy. No hemorrhage. Ventricles: Unremarkable. No ventriculomegaly. Skull: No acute fracture. Sinuses: Unremarkable as visualized. No acute sinusitis. Mastoid air cells: Unremarkable as visualized. No mastoid effusion. Vertebrae: No acute cervical spine fracture or subluxation. Discs/spinal canal/neural foramina: Disc space narrowing with degenerative endplate changes at C6 -C7. Moderate bilateral neural foraminal narrowing at C3-C4. Moderate right neural foraminal narrowing at C4-C5. Soft tissues: Unremarkable. * A single impression for all exams can be found at the end of this report EXAM DESCRIPTION: CT Chest, Abdomen and Pelvis Without Intravenous Contrast CLINICAL HISTORY: The patient is 70 years old and is Male; fall TECHNIQUE: Axial computed tomography images of the chest, abdomen and pelvis without intravenous con trast. Sagittal and coronal reformatted images were created and reviewed. This CT exam was perfor med using one or more of the following dose reduction techniques: automated exposure control, adjus tment of the mA and/or kV according to patient size, and/or use of iterative reconstruction technique . COMPARISON: CT chest angiography December 04, 2020. FINDINGS: CHEST: Lungs: Right basilar consolidation, similar to the prior exam. Scattered patchy groundglass opacities bilaterally. Bibasilar atelectasis. Pleural space: Unremarkable. No significant effusion. No pneumothorax. Heart: Unremarkable. No cardiomegaly. No significant pericardial effusion. ABDOMEN: Liver: Unremarkable. Gallbladder and bile ducts: Unremarkable. No calcified stones. No ductal dilation. Pancreas: Unremarkable. No ductal dilation. Spleen: Unremarkable. No splenomegaly. Adrenals: Unremarkable. No mass. Kidneys and ureters: Simple cyst in the right kidney. ACR White Paper guidelines (Herts, et al. J ACR 2018; 15(2):264-273) suggest no follow-up is necessary. No obstructing stones. No hydronephrosis. Stomach and bowel: Unremarkable. No obstruction. No mucosal thickening. PELVIS: Appendix: No findings to suggest acute appendicitis. Bladder: Unremarkable. No stones. Reproductive: Unremarkable as visualized. CHEST, ABDOMEN and PELVIS: Intraperitoneal space: Unremarkable. No significant fluid collection. No free air. Bones/joints: Mild anterolisthesis of L5 on S1 with bilateral pars defects. Disc space narrowing with degenerative endplate changes at L4-5 and L5-S1. Disc space narrowing with degenerative endplate changes in the midthoracic spine. No acute fracture. No dislocation. Soft tissues: Unremarkable. Vasculature: Scattered atherosclerotic vascular calcifications. No aortic aneurysm. Lymph nodes: Unremarkable. No enlarged lymph nodes. * A single impression for all exams can be found at the end of this report IMPRESSION: CT Head and Cervical Spine Without Intravenous Contrast: 1. No acute intracranial abnormality. 2. No acute cervical spine fracture or subluxation. CT Chest, Abdomen and Pelvis Without Intravenous Contrast: 1. Right basilar consolidation, similar to the prior exam. 2. Scattered patchy groundglass opacities bilaterally. Findings are nonspecific but can be seen w ith infectious and inflammatory etiologies. Findings are less pronounced compared to the prior exam. 3. No acute findings in the abdomen/pelvis. Electronically signed by: Cullen Walsh MD 12/15/2020 2:21 AM CDT Due to temporary technical issues with the PACS/Fluency reporting system, reports are being signed by the in house radiologists without review as a courtesy to insure prompt reporting. The interpreting radiologist is fully responsible for the content of the report.
[2020-12-15] MEDS: MELATONIN 5 MG TABLET PO PRN (21:11)
[2020-12-15] MEDS: MONTELUKAST 10 MG TAB PO SCH (21:11)
--- NOTE | 2020-12-15 22:01 | P.PN ---
Subjective Date of Service: 12/15/20 Primary Care Provider: Out of town Chief Complaint: COVID-19 pneumonia NC very hepoxic/ Not eating and drinking much Review of Systems General: Weakness Respiratory: Shortness of Breath Physical Examination - Vital Signs Temperature: 99.4 F Blood Pressure: 123/61 Pulse: 128 Respirations: 43 Pulse Ox (%): 88 - Physical Exam General: Alert, Moderate distress Assessment & Plan - Problems (Diagnosis) (1) Pneumonia due to COVID-19 virus Current Visit: Yes Status: Acute Plan: Resp failu No sig change/Not eating and drinking / Dobhoff/ WBC elevated/ WBC eleaveted/Add Rocephin/CXRy am
[2020-12-16] MEDS: LORazepam 2 MG/ML VIAL IV PRN (03:47)
[2020-12-16] MEDS: ONDANSETRON 4 MG/2 ML VIAL IV PRN ×2 (03:47→19:08)
[2020-12-16] MEDS: LEVOTHYROXINE SOD 0.075 MG TAB PO SCH (05:14)
[2020-12-16 05:58] LABS: Potassium 4.6 mmol/L (3.5-5.1)
[2020-12-16 05:59] LABS: Absolute Lymphocytes (CBC) 0.6 K/uL (0.7-4.9); Basophils % 0.1 % (0-1.3); Hematocrit 27.9 % (39.6-49.0); Lymphocytes % 1.6 % (15.3-44.8); MPV 8.6 fL (7.6-11.3); RBC Red Blood Cell Count 3.18 M/uL (4.33-5.43)
[2020-12-16] MEDS ORDERED: HALOPERIDOL LACT 5 MG/ML INJ IV ONE (07:22)
--- NOTE | 2020-12-16 08:19 | RAD REPORT ---
EXAM DESCRIPTION: RAD - Chest Single View - 12/16/2020 5:37 am CLINICAL HISTORY: resp failure COMPARISON: December 11, December 08 TECHNIQUE: AP portable chest image was obtained 12/16/2020 5:37 am . FINDINGS: Lung volumes are improved but still low compared to December 11 imaging. Interstitial and roel eolar opacities are still present but there is some improvement since the 2 prior studies. The differ ential improvement remains small. Heart and vasculature are normal. No measurable pleural effusion an d no pneumothorax. No acute bony abnormality seen. No acute aortic findings suspected. IMPRESSION: Slight improvement in the aeration of the lung freed since December 11 imaging. No new or progressive finding.
[2020-12-16] MEDS ORDERED: CEFTRIAXONE 1 GM/NS 50 ML 1 GM/50 ML BAG IV SCH (09:00)
[2020-12-16] MEDS: VITAMIN D 1000 UNIT TAB PO SCH (09:23)
[2020-12-16] MEDS: BARICITINIB 2 MG TABLET PO SCH (09:23)
[2020-12-16] MEDS: ZINC SULFATE 220 MG CAP PO SCH (09:24)
[2020-12-16] MEDS: METHYLPREDNISOLONE 125 MG INJ IV SCH ×3 (09:24→21:28)
[2020-12-16] MEDS: FUROSEMIDE 40 MG TABLET PO SCH (09:24)
[2020-12-16] MEDS: ASCORBIC ACID 500 MG TABLET PO SCH ×4 (09:24→21:00)
[2020-12-16] MEDS: CEFTRIAXONE/SWI 1gm 1 GM/10 ML SYR IV SCH (09:24)
[2020-12-16] MEDS: APIXABAN 5 MG TABLET PO SCH ×2 (09:24→21:28)
[2020-12-16] MEDS: FINASTERIDE 5 MG TAB PO SCH (09:24)
[2020-12-16] MEDS: ASPIRIN EC 81 MG TAB PO SCH (09:24)
[2020-12-16] MEDS: INSULIN -REGULAR HUMAN 50 UNIT/0.5 ML ML SQ SCH ×4 (09:25→21:00)
[2020-12-16] MEDS: THIAMINE HCL 100 MG TABLET PO SCH (09:25)
[2020-12-16] MEDS: ATORVASTATIN 10 MG TAB PO SCH (09:25)
[2020-12-16] MEDS: GLUCERNA SHAKE 237 ML CAN PO SCH ×2 (09:26→21:38)
[2020-12-16] MEDS: INSULIN GLARGINE 100 UNITS/ML SQ SCH ×2 (09:26→15:51)
--- NOTE | 2020-12-16 12:42 | P.PN ---
Subjective Date of Service: 12/16/20 Primary Care Provider: Out of town Chief Complaint: COVID-19 pneumonia Patient look sicker today. He is intermittently agitated and tries to take the BiPAP off. White cell count up to 34,000. Also tachycardic with heart rate up to 130-140s. Physical Examination - Vital Signs Temperature: 97.8 F Blood Pressure: 117/62 Pulse: 123 Respirations: 25 Pulse Ox (%): 86 - Physical Exam General: In no apparent distress, Other (Agitated and restless) HEENT: Other (BiPAP) Respiratory: Other (No labored breathing) Cardiovascular: Other (Tachycardia) Gastrointestinal: Soft and benign, Non-distended Musculoskeletal: No swelling Integumentary: No rashes Neurological: Other (No focal motor deficit.) Assessment And Plan Physician Review Additional Text: Problem List Acute hypoxic respiratory failure secondary to COVID-19 pneumonia Diabetes mellitus type 2, non-insulin dependent History of cerebral palsy Sepsis Plan Continue treatment per covid protocol -steroids, vitamin supplementation, oxygen supplementation Continue current dose steroid. Wean off BiPAP as tolerated On Baracitinib On oral Lasix Insulin sliding scale, titrate Lantus insulin Continue eliquis Patient flagging for sepsis. BP stable but tachycardic with severely elevated WBC. No fever. Obtain blood culture, start broad-spectrum IV antibiotics-Levaquin and Vanco. Metoprolol p.r.n. for tachycardia. VTE: eliquis Code: full
[2020-12-16] MEDS: METOPROLOL TARTRATE 5 MG/5 ML INJ IV PRN ×2 (12:49→21:44)
[2020-12-16] MEDS: ACETAMINOPHEN 500 MG TAB PO PRN (12:49)
[2020-12-16] MEDS: Levofloxacin 750mg IV 750 MG/150 ML BAG IV SCH (12:50)
[2020-12-16] MEDS ORDERED: VANCOMYCIN 2 GM in NA CHLORIDE 0.9% 500 ML IVPB ONE (13:00)
[2020-12-16] MEDS ORDERED: VANCOMYCIN 1.5 GM in NA CHLORIDE 0.9% 250 ML IVPB SCH (13:00)
[2020-12-16 13:23] LABS: Anisocytosis 1+; Blood Morphology Comment NOTED (NOT SEEN); Platelet Estimate INCR; Polychromasia 1+
[2020-12-16 13:24] LABS: Basophilic Stippling 1+
[2020-12-16] MEDS: HALOPERIDOL LACT 5 MG/ML INJ IV PRN ×2 (14:00→21:28)
[2020-12-16] MEDS ORDERED: HALOPERIDOL LACT 5 MG/ML INJ ONE (14:18)
[2020-12-16] MEDS ORDERED: NA CHLORIDE 0.9% 500 ML IV ONE (15:38)
[2020-12-16] MEDS ORDERED: MORPHINE 4 MG/ML SYR IV ONE (17:58)
[2020-12-16] MEDS: MONTELUKAST 10 MG TAB PO SCH (21:00)
[2020-12-17] MEDS ORDERED: LORazepam 2 MG/ML VIAL IV ONE (01:34)
[2020-12-17] MEDS: ONDANSETRON 4 MG/2 ML VIAL IV PRN (02:06)
[2020-12-17 03:58] LABS: Absolute Lymphocytes (CBC) 0.5 K/uL (0.7-4.9); Basophils % 0.2 % (0-1.3); Hematocrit 23.9 % (39.6-49.0); Lymphocytes % 1.6 % (15.3-44.8); MPV 8.6 fL (7.6-11.3); RBC Red Blood Cell Count 2.75 M/uL (4.33-5.43)
[2020-12-17] MEDS: METOPROLOL TARTRATE 5 MG/5 ML INJ IV PRN (04:07)
[2020-12-17] MEDS: HALOPERIDOL LACT 5 MG/ML INJ IV PRN ×3 (04:07→16:56)
[2020-12-17] MEDS: LEVOTHYROXINE SOD 0.075 MG TAB PO SCH (06:00)
[2020-12-17] MEDS: INSULIN -REGULAR HUMAN 50 UNIT/0.5 ML ML SQ SCH ×3 (07:30→16:30)
[2020-12-17] MEDS: CEFTRIAXONE/SWI 1gm 1 GM/10 ML SYR IV SCH (07:48)
[2020-12-17] MEDS: APIXABAN 5 MG TABLET PO SCH ×2 (07:49→20:57)
[2020-12-17] MEDS: METHYLPREDNISOLONE 125 MG INJ IV SCH ×2 (07:49→13:04)
[2020-12-17] MEDS: INSULIN GLARGINE 100 UNITS/ML SQ SCH (08:00)
[2020-12-17] MEDS: GLUCERNA SHAKE 237 ML CAN PO SCH ×2 (09:00→21:00)
[2020-12-17] MEDS: ZINC SULFATE 220 MG CAP PO SCH (09:00)
[2020-12-17] MEDS: THIAMINE HCL 100 MG TABLET PO SCH (09:00)
[2020-12-17] MEDS: VITAMIN D 1000 UNIT TAB PO SCH (09:00)
[2020-12-17] MEDS: ATORVASTATIN 10 MG TAB PO SCH (09:00)
[2020-12-17] MEDS: ASPIRIN EC 81 MG TAB PO SCH (09:00)
[2020-12-17] MEDS: ASCORBIC ACID 500 MG TABLET PO SCH ×4 (09:00→21:00)
[2020-12-17] MEDS: BARICITINIB 2 MG TABLET PO SCH (09:00)
[2020-12-17] MEDS: FUROSEMIDE 40 MG TABLET PO SCH (09:00)
[2020-12-17] MEDS: D5 0.9 NS 1,000 ML IV SCH ×2 (09:00→22:20)
[2020-12-17] MEDS: FINASTERIDE 5 MG TAB PO SCH (09:00)
[2020-12-17] MEDS: Levofloxacin 750mg IV 750 MG/150 ML BAG IV SCH (11:53)
[2020-12-17] MEDS ORDERED: VANCOMYCIN 1.5 GM in NA CHLORIDE 0.9% 500 ML IVPB SCH (13:00)
[2020-12-17] MEDS: HYDROCODONE/CHLORPHEN 5 ML/OSYR PO PRN (13:05)
--- NOTE | 2020-12-17 13:10 | P.PN ---
Subjective Date of Service: 12/17/20 Primary Care Provider: Out of town Chief Complaint: COVID-19 pneumonia Confused agitated hypoxic with elevated WBC Review of Systems is unable to be obtained Physical Examination - Vital Signs Temperature: 97.8 F Blood Pressure: 134/68 Pulse: 122 Respirations: 24 Pulse Ox (%): 94 Assessment & Plan - Problems (Diagnosis) (1) Pneumonia due to COVID-19 virus Current Visit: Yes Status: Acute Plan: CXRY has imrpoved/ WBC elevated/Add Diflucan/DC Rocepin/Culture neg/ Reduce steroids/ Try HF NC/DC lasix,on IVF
[2020-12-17] MEDS: METHYLPREDNISOLONE 40 MG INJ IV SCH ×2 (13:32→20:57)
--- NOTE | 2020-12-17 14:02 | P.PN ---
Subjective Date of Service: 12/17/20 Primary Care Provider: Out of town Chief Complaint: COVID-19 pneumonia Patient is restless, look sick. WBC trending down. Patient is still tachycardic. Physical Examination - Vital Signs Temperature: 97.8 F Blood Pressure: 134/68 Pulse: 122 Respirations: 24 Pulse Ox (%): 94 - Physical Exam General: Moderate distress HEENT: Other (BiPAP) Respiratory: Clear to auscultation bilaterally Cardiovascular: No edema, Other (Tachycardia) Gastrointestinal: Soft and benign, Non-distended Musculoskeletal: No swelling Integumentary: No rashes Neurological: Other (Confused) Assessment And Plan Physician Review Additional Text: Problem List Acute hypoxic respiratory failure secondary to COVID-19 pneumonia Diabetes mellitus type 2, non-insulin dependent History of cerebral palsy Sepsis Hypoglycemia Plan Continue treatment per covid protocol -steroids, vitamin supplementation, oxygen supplementation Steroid dose reduced. Wean off BiPAP as tolerated On Baracitinib Discontinue lasix Start IV fluid with dextrose Hold insulin therapy. Continue eliquis BP stable but tachycardic. No fever. Blood culture: No growth to date. Continue broad-spectrum IV antibiotics-Levaquin and Vanco. Metoprolol p.r.n. for tachycardia. Clinical condition is declining. Prognosis is guarded. VTE: eliquis Code: full
[2020-12-17] MEDS ORDERED: FLUCONAZOLE 400 MG IVPB 400 MG/200 ML BAG IV SCH (15:00)
[2020-12-17] MEDS: MORPHINE 2 MG/ML SYR IV PRN (20:57)
[2020-12-17] MEDS: MONTELUKAST 10 MG TAB PO SCH (21:00)
[2020-12-17] MEDS ORDERED: LORazepam 2 MG/ML VIAL IV SCH (21:00)
[2020-12-17] MEDS ORDERED: LORazepam 2 MG/ML VIAL IV PRN (21:02)
[2020-12-18] MEDS: HALOPERIDOL LACT 5 MG/ML INJ IV PRN ×2 (02:03→09:11)
[2020-12-18] MEDS: LORazepam 2 MG/ML VIAL IV PRN (03:17)
[2020-12-18 04:15] LABS: Potassium 4.2 mmol/L (3.5-5.1)
[2020-12-18 04:20] LABS: Absolute Lymphocytes (CBC) 0.4 K/uL (0.7-4.9); Hematocrit 23.1 % (39.6-49.0); Lymphocytes % 1.4 % (15.3-44.8); MPV 8.8 fL (7.6-11.3); RBC Red Blood Cell Count 2.58 M/uL (4.33-5.43)
[2020-12-18 05:06] VITALS: O2SAT 96
[2020-12-18] MEDS: MORPHINE 2 MG/ML SYR IV PRN (05:59)
[2020-12-18] MEDS: LEVOTHYROXINE SOD 0.075 MG TAB PO SCH (06:00)
[2020-12-18 08:49] VITALS: BP 136/62; TEMP 97.5
[2020-12-18] MEDS: GLUCERNA SHAKE 237 ML CAN PO SCH ×2 (08:58→09:00)
[2020-12-18] MEDS: METHYLPREDNISOLONE 40 MG INJ IV SCH (08:58)
[2020-12-18] MEDS: ASCORBIC ACID 500 MG TABLET PO SCH (09:00)
[2020-12-18] MEDS: FINASTERIDE 5 MG TAB PO SCH (09:00)
[2020-12-18] MEDS: APIXABAN 5 MG TABLET PO SCH (09:00)
[2020-12-18] MEDS: ASPIRIN EC 81 MG TAB PO SCH (09:00)
[2020-12-18] MEDS: BARICITINIB 2 MG TABLET PO SCH (09:00)
[2020-12-18] MEDS: VITAMIN D 1000 UNIT TAB PO SCH (09:00)
[2020-12-18] MEDS: ZINC SULFATE 220 MG CAP PO SCH (09:00)
[2020-12-18] MEDS: THIAMINE HCL 100 MG TABLET PO SCH (09:00)
[2020-12-18] MEDS: ATORVASTATIN 10 MG TAB PO SCH (09:00)
--- NOTE | 2020-12-18 13:52 | P.DS ---
Admission Date: 12/04/20 Discharge Date: 12/18/20 Primary Care Provider: Out of town Disposition: Reason for Admission: COVID-19 pneumonia Brief History of Present Illness: 70-year-old male with history of cerebral palsy, diabetes mellitus type 2 presented to the emergency department for shortness of breath. Patient reported increasing shortness of breath over the course of a few days. He tested positive for Covid a day prior to the ED presentation. Patient was found to be saturating in the 80s on room air was placed on BiPAP on arrival to the emergency department, labs were significant for GFR 71 glucose 134 CPK 698 CK-MB 7.8 troponin 0.03 CRP 120 BNP 464. Chest x-ray showed bilateral infiltrates. Patient admitted for further management. Hospital Course: Diagnosis: Acute hypoxic respiratory failure secondary to COVID-19 pneumonia Diabetes mellitus type 2, non-insulin dependent History of cerebral palsy Sepsis Hypoglycemia Acute metabolic encephalopathy Patient admitted to the medical floor, COVID protocol initiated with steroids, vitamin supplementation, oxygen supplementation He remained on BiPAP throughout the hospital stay. Pulmonary consulted, patient was seen by Dr. Queen and started on Baracitinib. He was also treated with Lasix briefly. Patient did not respond to treatment, he developed sepsis, blood cultures yielded no growth, he developed altered mental status. Family confirmed DNR status. Patient clinical condition declined and he eventually on 12/18/2020 at 0955 hours. Vital Signs/Physical Exam: Temp Pulse Resp BP Pulse Ox 97.5 F 108 H 19 136/62 93 12/18/20 08:00 12/18/20 08:00 12/18/20 08:00 12/18/20 08:00 12/18/20 08:00 Laboratory Data at Discharge: WBC 30.20 K/uL (4.3-10.9) H* 12/18/20 03:27 Hgb 7.5 g/dL (13.6-17.9) L 12/18/20 03:27 Hct 23.1 % (39.6-49.0) L 12/18/20 03:27 Plt Count 363 K/uL (152-406) 12/18/20 03:27 PT 12.5 SECONDS (9.5-12.5) 12/04/20 21:04 INR 1.09 08/02/21 21:04 APTT 29.5 SECONDS (24.3-36.9) 12/04/20 21:04 Sodium 145 mmol/L (136-145) 12/18/20 03:27 Potassium 4.2 mmol/L (3.5-5.1) 12/18/20 03:27 BUN 33 mg/dL (7-18) H D 12/18/20 03:27 Creatinine 0.99 mg/dL (0.55-1.3) 12/18/20 03:27 Glucose 252 mg/dL (74-106) H 12/18/20 03:27 Magnesium 2.4 mg/dL (1.8-2.4) 12/12/20 05:31 Total Bilirubin 1.0 mg/dL (0.2-1.0) 12/11/20 05:04 AST 25 U/L (15-37) 12/11/20 05:04 ALT 48 U/L (12-78) 12/11/20 05:04 Alkaline Phosphatase 73 U/L (45-117) 12/11/20 05:04 Troponin I 0.04 ng/mL (0.0-0.045) 12/05/20 05:30 Triglycerides 71 mg/dL (<150) 12/05/20 05:30 Cholesterol 97 mg/dL (<200) 12/05/20 05:30 HDL Cholesterol 42 mg/dL (40-60) 12/05/20 05:30 Cholesterol/HDL Ratio 2.31 12/05/20 05:30 Lipase 130 U/L (73-393) 12/04/20 21:04 Home Medications: Albuterol Sulfate [Proair Digihaler] 2 puff IH Q6HP PRN 12/06/20 Aspirin [Lo-Dose Aspirin EC] 81 mg PO DAILY 12/06/20 Atorvastatin Calcium 10 mg PO DAILY 12/06/20 Benzonatate 200 mg PO TIDP PRN 12/06/20 Finasteride 5 mg PO DAILY 12/06/20 Glipizide [Glipizide ER] 10 mg PO BID 12/06/20 Levothyroxine [Synthroid] 75 mcg PO [id number] 12/06/20 Metformin ER [Glucophage ER*] 1,000 mg PO BID 12/06/20 Montelukast [Singulair] 10 mg PO BEDTIME 12/06/20 Followup: NONE,NONE [Primary Care Provider] -
--- NOTE | 2020-12-21 08:31 | EKG ---
Test Date: 2020-12-16 Test Time: 11:43:48 Nurse Emergency: WENDY MEASUREMENT RESULTS: Intervals: Rate: 137 UT: 126 QRSD: 70 QT: 278 QTc: 419 [place]: P: 72 UT: 126 QRS: 48 T: 97 INTERPRETIVE STATEMENTS: Sinus tachycardia Nonspecific ST and T wave abnormality Abnormal ECG Compared to ECG 12/04/2020 21:11:20 ST (T wave) deviation now present Left ventricular hypertrophy no longer present Myocardial infarct finding no longer present Electronically Signed On 12-21-20 08:29:36 CDT by Hay Low
== END 2020-12-18 09:52 | disposition expired | DRG 177 ==
LOC: ER 20:59 → ERHOLD 22:00 → 4TH 12-05 17:49
PROVIDERS: ADMIT Hospitalist; ATTEND Internal Medicine
DX: U07.1 COVID-19 (principal); J12.82 Pneumonia due to coronavirus disease 2019; J96.01 Acute respiratory failure with hypoxia; G93.41 Metabolic encephalopathy; A41.9 Sepsis, unspecified organism; E11.9 Type 2 diabetes mellitus without complications; G80.9 Cerebral palsy, unspecified; Z66 Do not resuscitate
CPT/HCPCS: 36415; 70450; 71045; 71250; 71275; 72125; 80048; 80053; 80061; 80076; 81003; 81015; 82550; 82553; 82728; 82805; 82947; 83036; 83605; 83690; 83735; 83880; 84145; 84439; 84443; 84484; 85025; 85027; 85379; 85610; 85730; 86140; 87040; 93005; 94660; 94760; 96365; 96366; 96368; 96375; 99285; J0456; J0696; J1450; J1630; J1650; J1815; J1940; J2270; J2405; J2920; J2930; J3370; J7040; J7042; J7050; Q9967